=== PATIENT | male | born 1945 | race Caucasian/White ===

== ENCOUNTER 2022-10-08 10:32 | Emergency (ER) | payer OTHER ==
--- OUTSIDE RECORDS SUMMARY | 2022-10-08 10:38 | XMS REPORT | Continuity of Care Document ---
:1945 Author Organization [facility] t Address [address] [facility]. [address] [place] [address] Care Team Providers Name Role Phone Reyna Primary Care Physician Elda Attending Clinician Unavailable PINKY Attending Clinician Unavailable JEB PASCUAL Attending Clinician Unavailable Elda Admitting Clinician Unavailable PINKY Admitting Clinician Unavailable JEB PASCUAL Admitting Clinician Unavailable Payers Payer Name Policy Type Policy Number Effective Date Expiration Date [facility] [id number] 2021 COMMUNITY PLAN-[place] 00:00:00 (MEDICARE REPLACEMENT/ADVANTA GE - PPO) [facility] - [id number] MEDICARE SOLUTIONS - MEDICARE COMPLETE (MEDICARE REPLACEMENT PPO) Problems Condition Condition Condition Status Onset Resolution Last Treating Co mments Source Name Details Category Date Date Treatment Clinician Date Hypertensi Hypertensi Problem Active 2019-06 M [place] ve ve 2-29 da disorder Disorder 00:00: [facility] 00 [facility] Pancytopen Pancytopen Disease [facility]ur[facility] due to nce 2-13 [facility] chemothera chemothera 00:00: Me dical py py 00 Center Colitis Colitis Disease Active [facility]13 [facility] Clostridiu Clostridiu 00:00: Me dical m m 00 Center difficile difficile Hyponatrem Hyponatrem Disease Active [facility] 2[facility]13 [facility] Medical 00 Center Hypokalemi Hypokalemi Disease Active 2017-[address] [facility] a 2-13 [facility] 00:[facility] Medical 00 Center Fever and Fever and Disease Recurre [facility] neutropeni neutropeni nce 2-10 Janine kes a a 00:00: Medical 00 Center Simple Simple Disease Recurre [facility] chronic chronic nce 07-05 [facility] bronchitis bronchitis 00:00: Me dical 00 Center 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 07-05 [facility] 00:[facility]: Medical 00 Center 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 07-05 [facility] marrow marrow 00:00: Medical failure failure 00 Center Allergies, Adverse Reactions, Alerts Allergy Allergy Status Severity Reaction(s) Onset Inactive Treating Comm ents Source Name Type Date Date Clinician Penicill Propensi Active Rash Has [facility] ins ty to 07-05 tolerated [facility] adverse 00:00: cefepime Medical reaction 00 and Center s meropenem without any allergic reaction during 2016 admission PENICILL Allergy Active [place] ANIC to da SULFONE [facility] BL e al BETA-LAC Health TAMASE Outreac INHIBITO h RS Program SULFA Allergy Active Rash, [place] (SULFONA to Wheezing da MIDE [facility] Medical ANTIBIOT e Group ICS) Family History Family Member Diagnosis Comments Start Date Stop Date Source Natural mother Stroke [facility] Social History Social Habit Start Date Stop Date Quantity Comments Source History of Current smoker [facility] tobacco use Medical Cent[facility] r Alcohol intake 2016-07-05 2016-07-05 Current drinker [facility] Catherine fragoso [facility] 00:00:00 00:00:00 of [facility] (finding) Sex Ass[birth year] At [birth year] [facility] 00:00:00 00:00:00 Medical Center Smoking Status Start Date Stop Date Source Light Tobacco Smoker [facility] Heavy Tobacco Smoker [facility] Ex-smoker 2016-07-05 00:00:00 2016-07-05 00:00:00 [facility] Medications Ordered Filled Start Stop Current Ordering Indication Dosage Frequency Signature Comments Components Source Medication Medication Date Date Medication? Clinician (SIG) Name Name finasteride Yes 5mg QD Take [address] (PROSCAR) 5 2-27 by mouth Luke s mg tablet 14:49: daily. Medica l 40 [place] tamsulosin 2017-0 Yes .4mg QD Take 0.[address] [facility] (FLOMAX) 2-27 mg by [facility] 0.4 mg Cp24 14:49: mouth Medic al 24 hr 40 daily. Center capsule tamsulosin tamsulosin No 1capsul Q1D tamsulosin [place] 0.4 mg 0.4 mg e(s) 0.4 mg da capsule capsule capsule Medica l Take 1 Take 1 Take 1 Group capsule capsule capsule every day every day every day by oral by oral by oral route. route. route. Adult Low Adult Low No Adult Low [place] Dose Dose Dose da Aspirin Aspirin Aspirin [facility] Outre h Program atorvastati atorvastati No atorvastat [place] n n in da [facility] Program azithromyci azithromyci No 1 Q1D azithromyc [place] n 500 mg n 500 mg in 500 mg da tablet Take tablet Take tablet [facility] 1 tablet 1 tablet Take 1 al every day every day tablet Hea lth by oral by oral every day Outr eac route for 3 route for 3 by oral h days. days. route for Program 3 days. finasteride finasteride No finasterid [place] [facility] da [facility] Program ivermectin ivermectin No ivermectin [place] 3 mg tablet 3 mg tablet 3 mg d a Take 5 Take 5 tablet [facility] tablets by tablets by Take 5 a l mouth today mouth today tablets by [facility] and repeat and repeat mouth Ou treac in 2 days. in 2 days. today and h repeat in Program 2 days. lisinopril lisinopril No lisinopril [place] [facility] Medrol Medrol No Medrol [place] (Yahir) 4 mg (Yahir) 4 mg (Yahir) 4 mg da tablets in tablets in tablets in [facility] a dose pack a dose pack a dose al Take as Take as pack Take Heal th directed directed as Outreac directed h Program metformin metformin No metformin [place] [facility] tamsulosin tamsulosin No tamsulosin [place] [facility] Vital Signs Vital Name Observation Time Observation Value Comments Source BP Diastolic 2022-02-14 00:00:00 76 mm[Hg] [facility] Height 2022-02-14 00:00:00 69 [in_i] [facility] BMI (Body Mass 2022-02-14 00:00:00 27.7 kg/m2 [facility] BP Systolic 2022-02-14 00:00:00 123 mm[Hg] [facility] Body Weight 2022-02-14 00:00:00 187.3 [lb_av] [facility] BP Diastolic 2020-06-07 00:00:00 70 mm[Hg] [place] [facility] Height 2020-06-07 00:00:00 70 [in_i] [place] [facility] BMI (Body Mass 2020-06-07 00:00:00 26.1 kg/m2 [facility] BP Systolic 2020-06-07 00:00:00 110 mm[Hg] [place] [facility] Body Weight 2020-06-07 00:00:00 2905.6 [oz_av] [facility] Procedures Procedure Date / Time Performed Performing Clinician Sourc e Tonsillectomy [facility]end[facility] Plan of Care Planned Activity Planned Date Details Comments Source Diagnostic Test 2020-06-07 COVID-19 RNA [place] Pending 00:00:00 (SARS-CoV-2), QL, [facility] oem sales manager-PCR, respiratory Outreac h Program specimen [code = COVID-19 RNA (SARS-CoV-2), QL, oem sales manager-PCR, respiratory specimen] Encounters Start End Encounter Admission Attending Care Care Encounter Source Date/Time Date/Time Type Type Clinicians Facility Department ID 2022-02-14 2022-02-14 [place] [id number] [place] 00:00:00 00:00:00 0907 da [facility] 2022-02-14 2022-02-14 YOSSI Weinstein [place] - [id number] [place] 00:00:00 00:00:00 MD: Celeste Patel [facility] [address], [place], [place] [id number] , Ph. 2022-01-11 2022-01-11 Outpatient [place]_Tashi [place]G [id number] [place] 00:00:00 00:00:00 0804 Medical Group 2020-06-09 2020-06-09 Outpatient [facility] [id number] [place] 04:25:00 04:25:00 [id number] [facility] Health Outreac h Program 2020-06-07 2020-06-07 Outpatient [facility] [id number] [place] 06:37:00 06:37:00 [id number] [facility] Health Outreac h Program 2020-06-07 2020-06-07 Nikki [facility] [place] - [id number] at[place]or 00:00:00 00:00:00 Veronica [facility] Mo, [facility] op SOURCING MANAGER: [address] [facility] [address] [facility] , Ph. Results Test Description Test Time Test Comments Results Result Comments Source BLOOD CULTURE, AFB ISOLATOR 2016-09-12 11:08:00 Test Item Value Reference Range Interpretation Comme nts CULTURE (AKER) (test code = 1095) No acid-fast bacilli isolated i n 42 days BONE MARROW [id number] 12:57:00Bone Marrow Pathology Report Case: [id number] Authorizing Provider: Minor Hernandez MD Ordering Provider: Minor Hernandez MD Ordering Location: [address] Collected: 08/06/2016 1140 SERVICE Pathologist: Malorie Jaime MD Received: 08/06/2016 1209 Specimens: A) - Bone B) - C) - [facility] [employer] Result;Classical cytogenetic studies show a normal karyotype. FISH studies for inv 16 reportedly show 199 cells negative for gene rearrangement, and one abnormal cell; although this result is below the threshold of detection for this assay, it would be difficult to exclude a very low level of disease (see attached report for full details). These results do not alter the previously rendered diagnosis. BONE MARROW ASPIRATE, CLOT, AND DECALCIFIED BIOPSY:- HYPERCELLULAR MARROW WITH TRILINEAGE HEMATOPOIESIS, 1% BLASTS AND ADEQUATE MATURATION (see comment)-PENDING CYTOGENETIC STUDIESPERIPHERAL BLOOD:NORMOCYTIC ANEMIA, ABSOLUTE NEUTROPENIA AND LYMPHOPENIA Signing Pathologist Direct Phone Line: [phone] than 5% (1%) blasts are noted on aspirate smears, as confirmed by flow cytometry ([id number]). These results do not provide morphologic or immunophenotypic evidence of residual acute myeloid leukemia. Cytogenetic studies are pending, including FISH for CBFB rearrangement (inv 16), and will be reported separately by [facility] [employer]. An addendum incorporating these results will follow.06052; 34439; 45850 x 2; 40803; 66679GWF, s/p therapyBone marrowAll parts are labeled with the patients' information.Specimen A received several aspirate smears including one unstained slide for Pema's iron stain.Specimen B in formalin is a 1.0-cm in greatest dimension portion of clotted blood. The specimen is entirely submitted in cassette B1. Specimen C in formalin are two azevedo-white cores of osseous tissue measuring 0.3 cm and 0.7 cm in length. The specimen is entirely submitted in cassette C1 for decalcification. DB/bcBONE MARROW ASPIRATE:QUALITY:Aspirate- AdequateTouch imprint- AdequateMARROW DIFFERENTIAL COUNT: Number of cells counted: 3001 % Blasts 3 % Promyelocytes 29 % Myelocytes/Metamyelocytes 28 % Bands/Segmented granulocytes 1 % Eosinophils and precursors 0 % Basophils and precursors 32 % Erythroid precursors 3 % Lymphocytes 2 % Monocytes1 % Plasma cellsMyeloid: Erythroid Ratio: 2; NormalBlasts: Not IncreasedErythropoiesis: Normal and complete maturation Myelopoiesis: Left shifted with complete maturation Megakaryocytes: Present and appear normalStainable iron is focally present based on an iron stain performed on the aspirate smear. There are no ring sideroblasts identified. BONE MARROW BIOPSY:Biopsy- AdequateClot- InadequateHypercellular (80%). Cellular composition similar to aspirate smears and touch imprints. Normal proportions of myeloid and erythroid precursors present with complete maturation. Megakaryocytes are adequate and include a few hyperchromatic and/or hypersegmented forms. Bony trabeculae: unremarkableStainable storage iron cannot be assessed due to the lack of adequate particles on an iron stain performed on the clot section. PERIPHERAL BLOOD:RBCs:Normochromic, mild anisopoikilocytosis WBCs:Mild toxic granulation Platelets: Normal numberFLOW CYTOMETRY [id number] 09:04:00 Test Item Value Reference Range Interpretation Comments FLOW CYTOMETRY RESULT See Separate Report POINTER (KEYANNA) (test code = 2758) FLOW CYTOMETRY AP CASE # [id number] (BEAKER) (test code = 2759) FLOW [id number] 16:28:00 Test Item Value Reference Range Interpretation Comments LAB AP CPT CODE (BEAKER) (test code = 67194 2749) BONE MARROW PROCESS.2016-08-06 12:21:00 Test Item Value Reference Range Interpretation Comments ANATOMIC CASE# (BEAKER) (test code [id number] = 2470) ORDERED BY DOCTOR# (KEYANNA) (test [place], S code = 2457) PERFORMED BY DOCTOR# (KEYANNA) (test [place] code = 2458) CLOT RECEIVED? (BEAKER) (test code Yes = 2459) BIOPSY RECEIVED? (BEAKER) (test Yes code = 2460) CULTURE RECEIVED? (BEAKER) (test No code = 2464) FLOW RECEIVED? (BEAKER) (test code Hold = 2461) CYTOGENICS? (BEAKER) (test code = Hold 2462) MOLECULAR GENETICS? (BEAKER) (test Hold code = 2463) BONE MARROW [id number] 10:57:00Bone Marrow Pathology Report Case: [id number] Authorizing Provider: Minor Hernandez MD Ordering Provider:Minor Hernandez MD Ordering Location: [address] Collected: 07/26/2016 1150 SERVICE Pathologist: Gracia Messer Received: 07/26/2016 7274 MD Alber Specimens: A) - Bone Marrow B) - Bone Marrow C) - Bone Marrow This addendum is being issued to report results of cytogenetic studies performed by [facility] [employer]:46,XY[10]Limited analysis. Only ten cells were available for cytogenetic analysis from one culture. These ten cells have a normal male complement with no cytogenetic evidence of the abnormal cell lines identified in the previous sample. This does not rule out the presen ce of clonal abnormalities. BONE MARROW ASPIRATE, CLOT, AND DECALCIFIED BIOPSY: - HYPOCELLULAR MARROW WITH APPROXIMATELY 1% BLASTS AND INCREASED LYMPHOCYTES, MONOCYTES AND PLASMA CELLS, CONSISTENT WITHREPORTED HISTORY OF INDUCTION CHEMOTHERAPY PERIPHERAL BLOOD: - PANCYTOPENIA- NO CIRCULATING BLASTS Signing Pathologist Direct Phone Line: [phone] correlate with pending cytogenetic studies for final interpretation.27435; 04957; 46463 x 2; 02653; 01199; 38266; 19241 x 9AML, s/p chemo. Day 14marrow.A. One unstained slide for Pema's iron stain; B. Bone marrow aspirate, C. Bone marrow biopsySpecimen A: Received in one unstained slide for Pema's iron stain. Specimen B: Received in formalin labeled with the patient's information only is a 1.5 x 0.6 x 0.5 cm portion of clotted blood. The specimen is entirely submitted in cassette B1.Specimen C: In formalin labeled with the patient's information only is a 0.6 cm in length azevedo-white core of osseous tissue. The specimen is entirely submitted in cassette C1 for decalcification. DB/plBONE MARROW ASPIRATE:QUALITY:Aspirate- AdequateTouch imprint-AdequateMARROW DIFFERENTIAL COUNT: Number of cells counted: 100- % Blasts - % Promyelocytes - % Myelo cytes/Metamyelocytes - % Bands/Segmented granulocytes - % Eosinophils and precursors - % Basophils and precursors - % Erythroid precursors 84 % Lymphocytes 5 % [id number] % Plasma cellsBlasts: Not IncreasedIron stain (performed on aspirate smear) is difficult to interpret, but iron appears to be present. RBC iron incorporation is precluded by absence of erythroids. BONE MARROW BIOPSY:Biopsy- AdequateClot- Limited-- one small spicule is present Hypocellular (5%)Cellular composition similar to aspirate smears and touch imprints. The biopsy consists predominately of lymphocytes, plasma cells and monocytes; two megakaryocytes are identified. Immunohistochemical studies are performed with appropriate controls. CD34 highlights approximately 1% blasts. MPO highlights a few mononuclear cells; a few of these cells appear to also be positive for CD34. CD61 highlights two megakaryocytes. E-cadherin does not demonstrate erythroids. CD3 and CD20 highlight small scattered T- and B- lymphocytes, respectively (more T cells are present than B-cells). CD4 shows increased background staining, but appears to be positive in lymphocytes and monocytes. CD138 highlights scattered and perisinusoidal plasma cells which are polytypic for kappa and lambda. Bony trabeculae: UnremarkableIron stain performed on clot section is non-contributory-- the single spicule which is present on the H&E stain is not present on the iron stained slide. PERIPHERAL BLOOD:RBCs:Severe anemia; normochromic WBCs:Severe leukopenia; no ci rculating blasts Platelets: Sever thrombocytopenia; no clumping or satellitosisThe following special studies were performed on this case and the interpretation is incorporated in the diagnostic reportabove: CD34, MPO, CD4, CD138, Wanda, Lambda, CD3, CD20, CD61, E-Cadherin (block C1).The immunohistoch emistry test was developed and its performance characteristics determined by [facility], Pathology Laboratory. It has not been cleared or approved by the U.S. Food and Drug Administration. The FDA has determined that such clearance or approval is not necessary. The test is used for clinical purposes. It should not be regarded as investigational or for research. This laboratory is certified under the Clinical Laboratory Improvement Amendments of 1988 (CLIA-88) as qualified to perform high complexity clinical laboratory testing.CBC W/PLT COUNT & AUTO [id number] 10:26:00 Test Item Value Reference Range Interpretation Comments WHITE BLOOD CELL COUNT (BEAKER) 2.7 K/ L 4.0-10.0 L (test code = 775) RED BLOOD CELL COUNT (BEAKER) 2.60 M/ L 4.20-5.80 L (test code = 761) HEMOGLOBIN (BEAKER) (test code = 8.6 GM/DL 13.0-16.8 L 410) HEMATOCRIT (BEAKER) (test code = 24.6 % 40.0-50.0 L 411) MEAN CORPUSCULAR VOLUME (BEAKER) 94.7 fL 82.0-98.0 (test code = 753) MEAN CORPUSCULAR HEMOGLOBIN 33.1 pg 27.0-33.0 H (BEAKER) (test code = 751) MEAN CORPUSCULAR HEMOGLOBIN CONC 34.9 GM/DL 32.0-36.0 (BEAKER) (test code = 752) RED CELL DISTRIBUTION WIDTH 16.2 % 10.3-14.2 H (BEAKER) (test code = 412) PLATELET COUNT (BEAKER) (test 256 K/CU MM 150-430 code = 756) MEAN PLATELET VOLUME (BEAKER) 7.8 fL 6.5-10.5 (test code = 754) NUCLEATED RED BLOOD CELLS 0 /100 WBC 0-0 (BEAKER) (test code = 413) 0.00(MANUAL DIFFERENTIAL)2016-08-06 10:26:00 Test Item Value Reference Range Interpretation Comments NEUTROPHILS - REL (DIFF) (BEAKER) 49 % (test code = 1359) LYMPHOCYTES - REL (DIFF) (BEAKER) 23 % (test code = 1360) MONOCYTES - REL (DIFF) (BEAKER) 26 % (test code = 1361) BANDS - REL (DIFF) (BEAKER) (test 2 % 0-10 code = 1348) NEUTROPHILS - ABS (DIFF) (BEAKER) 1.32 K/ L 1.80-8.00 L (test code = 1365) LYMPHOCYTES - ABS (DIFF) (BEAKER) 0.62 K/ L 1.48-4.50 L (test code = 1366) MONOCYTES - ABS (DIFF) (BEAKER) 0.70 K/ L 0.00-1.30 (test code = 1367) BANDS-ABS (DIFF) (BEAKER) (test 0.1 K/ L 0.0-0.8 code = 1349) TOTAL COUNTED (BEAKER) (test code = 100 1351) BANDS + SEGMENTED NEUTROPHILS 1.38 (BEAKER) (test code = 1352) WBC MORPHOLOGY (BEAKER) (test code Normal = 487) PLT MORPHOLOGY (BEAKER) (test code Normal = 486) POIKILOCYTES (BEAKER) (test code = 1+ few 966) TEAR DROP CELLS (BEAKER) (test code 1+ few = 481) CBC W/PLT COUNT & AUTO [id number] 10:43:00 Test Item Value Reference Range Interpretation Comments WHITE BLOOD CELL COUNT (BEAKER) 2.0 K/ L 4.0-10.0 L (test code = 775) RED BLOOD CELL COUNT (BEAKER) 2.49 M/ L 4.20-5.80 L (test code = 761) HEMOGLOBIN (BEAKER) (test code = 8.5 GM/DL 13.0-16.8 L 410) HEMATOCRIT (BEAKER) (test code = 24.1 % 40.0-50.0 L 411) MEAN CORPUSCULAR VOLUME (BEAKER) 96.7 fL 82.0-98.0 (test code = 753) MEAN CORPUSCULAR HEMOGLOBIN 34.0 pg 27.0-33.0 H (BEAKER) (test code = 751) MEAN CORPUSCULAR HEMOGLOBIN CONC 35.1 GM/DL 32.0-36.0 (BEAKER) (test code = 752) RED CELL DISTRIBUTION WIDTH 15.5 % 10.3-14.2 H (BEAKER) (test code = 412) PLATELET COUNT (BEAKER) (test 182 K/CU MM 150-430 code = 756) MEAN PLATELET VOLUME (BEAKER) 7.8 fL 6.5-10.5 (test code = 754) NUCLEATED RED BLOOD CELLS 0 /100 WBC 0-0 (BEAKER) (test code = 413) 0.000.500.000.000.000.000.00(MANUAL DIFFERENTIAL)2016-08-05 10:43:00 Test Item Value Reference Range Interpretation Comments NEUTROPHILS - REL (DIFF) (BEAKER) 52 % (test code = 1359) LYMPHOCYTES - REL (DIFF) (BEAKER) 23 % (test code = 1360) MONOCYTES - REL (DIFF) (BEAKER) 13 % (test code = 1361) METAMYELOCYTES-REL (DIFF) (BEAKER) 5 % 0-0 H (test code = 258) BANDS - REL (DIFF) (BEAKER) (test 6 % 0-10 code = 1348) ATYPICAL LYMPHOCYTE - REL (DIFF) 1 % 0-0 H (BEAKER) (test code = 260) NEUTROPHILS - ABS (DIFF) (BEAKER) 1.04 K/ L 1.80-8.00 L (test code = 1365) LYMPHOCYTES - ABS (DIFF) (BEAKER) 0.46 K/ L 1.48-4.50 L (test code = 1366) MONOCYTES - ABS (DIFF) (BEAKER) 0.26 K/ L 0.00-1.30 (test code = 1367) METAMYELOCTYES - ABS (DIFF) 0.10 K/ L 0.00-0.00 H (BEAKER) (test code = 261) BANDS-ABS (DIFF) (BEAKER) (test 0.1 K/ L 0.0-0.8 code = 1349) ATYPICAL LYMPHOCYTES - ABS (DIFF) 0.02 K/ L 0.00-0.00 H (BEAKER) (test code = 263) TOTAL COUNTED (BEAKER) (test code 100 = 1351) BANDS + SEGMENTED NEUTROPHILS 1.16 (BEAKER) (test code = 1352) MANUAL NRBC PER 100 CELLS (BEAKER) 2 /100 WBC 0-0 H (test code = 1353) WBC MORPHOLOGY (BEAKER) (test code Normal = 487) PLT MORPHOLOGY (BEAKER) (test code Normal = 486) ELLIPTOCYTES (BEAKER) (test code = 1+ few 962) [id number] 06:06:00 Test Item Value Reference Range Interpretation Comments PHOSPHORUS (BEAKER) (test code = 2.4 mg/dL 2.3-4.7 604) [id number] 06:06:00 Test Item Value Reference Range Interpretation Comments MAGNESIUM (BEAKER) (test code = 1.6 mg/dL 1.6-2.6 627) BASIC METABOLIC [id number] 06:06:00 Test Item Value Reference Range Interpretation Comments SODIUM (BEAKER) 133 meq/L 136-145 L (test code = 381) POTASSIUM (BEAKER) 3.5 meq/L 3.5-5.1 (test code = 379) CHLORIDE (BEAKER) 108 meq/L 98-107 H (test code = 382) CO2 (BEAKER) (test 19 meq/L 22-29 L code = 355) BLOOD UREA NITROGEN 7 mg/dL 7-21 (BEAKER) (test code = 354) CREATININE (BEAKER) 0.60 mg/dL 0.57-1.25 (test code = 358) GLUCOSE RANDOM 113 mg/dL 70-105 H (BEAKER) (test code = 652) CALCIUM (BEAKER) 6.9 mg/dL 8.4-10.2 L (test code = 697) EGFR (BEAKER) (test 133 mL/min/1.73 ESTIM ATED GFR IS code = 1092) sq m NOT ACCURATE CREATININE CLEARANCE IN PREDICTING GLOMERULAR FILTRATION RATE . ESTIMATED GFR I S NOT APPLICABLE FOR DIALYSIS PATIEN TS. CBC W/PLT COUNT & AUTO [id number] 13:12:00 Test Item Value Reference Range Interpretation Comments WHITE BLOOD CELL COUNT (BEAKER) 1.5 K/ L 4.0-10.0 L (test code = 775) RED BLOOD CELL COUNT (BEAKER) 2.41 M/ L 4.20-5.80 L (test code = 761) HEMOGLOBIN (BEAKER) (test code = 8.1 GM/DL 13.0-16.8 L 410) HEMATOCRIT (BEAKER) (test code = 22.9 % 40.0-50.0 L 411) MEAN CORPUSCULAR VOLUME (BEAKER) 94.9 fL 82.0-98.0 (test code = 753) MEAN CORPUSCULAR HEMOGLOBIN 33.6 pg 27.0-33.0 H (BEAKER) (test code = 751) MEAN CORPUSCULAR HEMOGLOBIN CONC 35.4 GM/DL 32.0-36.0 (BEAKER) (test code = 752) RED CELL DISTRIBUTION WIDTH 16.0 % 10.3-14.2 H (BEAKER) (test code = 412) PLATELET COUNT (BEAKER) (test 106 K/CU MM 150-430 L code = 756) MEAN PLATELET VOLUME (BEAKER) 8.1 fL 6.5-10.5 (test code = 754) NUCLEATED RED BLOOD CELLS 0 /100 WBC 0-0 (BEAKER) (test code = 413) NEUTROPHILS RELATIVE PERCENT 41 % (BEAKER) (test code = 429) LYMPHOCYTES RELATIVE PERCENT 34 % (BEAKER) (test code = 430) MONOCYTES RELATIVE PERCENT 23 % (BEAKER) (test code = 431) EOSINOPHILS RELATIVE PERCENT 2 % (BEAKER) (test code = 432) BASOPHILS RELATIVE PERCENT 0 % (BEAKER) (test code = 437) NEUTROPHILS ABSOLUTE COUNT 0.60 K/ L 1.80-8.00 L (BEAKER) (test code = 670) LYMPHOCYTES ABSOLUTE COUNT 0.50 K/ L 1.48-4.50 L (BEAKER) (test code = 414) MONOCYTES ABSOLUTE COUNT (BEAKER) 0.34 K/ L 0.00-1.30 (test code = 415) EOSINOPHILS ABSOLUTE COUNT 0.04 K/ L 0.00-0.50 (BEAKER) (test code = 416) BASOPHILS ABSOLUTE COUNT (BEAKER) 0.00 K/ L 0.00-0.20 (test code = 417) 0.000.730.500.000.000.000.000.00(MANUAL DIFFERENTIAL)2016-08-04 13:12:00 Test Item Value Reference Range Interpretation Comments TOTAL COUNTED (BEAKER) (test code = 1351) WBC MORPHOLOGY (BEAKER) (test Normal code = 487) LARGE PLT(BEAKER) (test code = Present 2156) ACANTHOCYTES (BEAKER) (test code 2+ moderate = 471) ANISOCYTOSIS (BEAKER) (test code 2+ moderate = 961) GHAZALA CELLS (BEAKER) (test code = 1+ few 474) HYPOCHROMIA (BEAKER) (test code = 2+ moderate 963) MACROCYTES (BEAKER) (test code = 2+ moderate 964) MICROCYTES (BEAKER) (test code = 1+ few 965) OVALOCYTES (BEAKER) (test code = 1+ few 477) POIKILOCYTES (BEAKER) (test code 2+ moderate = 966) POLYCHROMATOPHILLIC RBCS(BEAKER) 1+ few (test code = 478) BASIC METABOLIC [id number] 06:17:00 Test Item Value Reference Range Interpretation Comments SODIUM (BEAKER) 134 meq/L 136-145 L (test code = 381) POTASSIUM (BEAKER) 3.6 meq/L 3.5-5.1 (test code = 379) CHLORIDE (BEAKER) 107 meq/L 98-107 (test code = 382) CO2 (BEAKER) (test 21 meq/L 22-29 L code = 355) BLOOD UREA NITROGEN 5 mg/dL 7-21 L (BEAKER) (test code = 354) CREATININE (BEAKER) 0.52 mg/dL 0.57-1.25 L (test code = 358) GLUCOSE RANDOM 99 mg/dL 70-105 (BEAKER) (test code = 652) CALCIUM (BEAKER) 6.8 mg/dL 8.4-10.2 L (test code = 697) EGFR (BEAKER) (test 157 mL/min/1.73 ESTIM ATED GFR IS code = 1092) sq m NOT ACCURATE CREATININE CLEARANCE IN PREDICTING GLOMERULAR FILTRATION RATE . ESTIMATED GFR I S NOT APPLICABLE FOR DIALYSIS PATIEN TS. [id number] 06:15:00 Test Item Value Reference Range Interpretation Comments PHOSPHORUS (BEAKER) (test code = 2.6 mg/dL 2.3-4.7 604) [id number] 06:15:00 Test Item Value Reference Range Interpretation Comments MAGNESIUM (BEAKER) (test code = 1.7 mg/dL 1.6-2.6 627) CBC W/PLT COUNT & AUTO [id number] 07:47:00 Test Item Value Reference Range Interpretation Comments WHITE BLOOD CELL COUNT (BEAKER) 1.1 K/ L 4.0-10.0 L (test code = 775) RED BLOOD CELL COUNT (BEAKER) 2.28 M/ L 4.20-5.80 L (test code = 761) HEMOGLOBIN (BEAKER) (test code = 7.3 GM/DL 13.0-16.8 L 410) HEMATOCRIT (BEAKER) (test code = 21.5 % 40.0-50.0 L 411) MEAN CORPUSCULAR VOLUME (BEAKER) 94.7 fL 82.0-98.0 (test code = 753) MEAN CORPUSCULAR HEMOGLOBIN 32.0 pg 27.0-33.0 (BEAKER) (test code = 751) MEAN CORPUSCULAR HEMOGLOBIN CONC 33.8 GM/DL 32.0-36.0 (BEAKER) (test code = 752) RED CELL DISTRIBUTION WIDTH 15.2 % 10.3-14.2 H (BEAKER) (test code = 412) PLATELET COUNT (BEAKER) (test code 59 K/CU MM 150-430 L = 756) MEAN PLATELET VOLUME (BEAKER) 8.5 fL 6.5-10.5 (test code = 754) NUCLEATED RED BLOOD CELLS (BEAKER) 0 /100 WBC 0-0 (test code = 413) NEUTROPHILS RELATIVE PERCENT 41 % (BEAKER) (test code = 429) LYMPHOCYTES RELATIVE PERCENT 38 % (BEAKER) (test code = 430) MONOCYTES RELATIVE PERCENT 21 % (BEAKER) (test code = 431) EOSINOPHILS RELATIVE PERCENT 0 % (BEAKER) (test code = 432) BASOPHILS RELATIVE PERCENT 0 % (BEAKER) (test code = 437) NEUTROPHILS ABSOLUTE COUNT 0.46 K/ L 1.80-8.00 L (BEAKER) (test code = 670) LYMPHOCYTES ABSOLUTE COUNT 0.42 K/ L 1.48-4.50 L (BEAKER) (test code = 414) MONOCYTES ABSOLUTE COUNT (BEAKER) 0.24 K/ L 0.00-1.30 (test code = 415) EOSINOPHILS ABSOLUTE COUNT 0.00 K/ L 0.00-0.50 (BEAKER) (test code = 416) BASOPHILS ABSOLUTE COUNT (BEAKER) 0.00 K/ L 0.00-0.20 (test code = 417) [id number](MANUAL DIFFERENTIAL)2016-08-03 07:47:00 Test Item Value Reference Range Interpretation Comments TOTAL COUNTED (BEAKER) (test code = 1351) PLT MORPHOLOGY (BEAKER) (test code = Normal 486) ATYPICAL LYMPHS(BEAKER) (test code = Present 1678) TOXIC GRANULATION (BEAKER) (test code Slight = 771) POLYCHROMATOPHILLIC RBCS(BEAKER) 1+ few (test code = 478) BASIC METABOLIC [id number] 06:35:00 Test Item Value Reference Range Interpretation Comments SODIUM (BEAKER) 133 meq/L 136-145 L (test code = 381) POTASSIUM (BEAKER) 3.7 meq/L 3.5-5.1 (test code = 379) CHLORIDE (BEAKER) 108 meq/L 98-107 H (test code = 382) CO2 (BEAKER) (test 21 meq/L 22-29 L code = 355) BLOOD UREA NITROGEN 5 mg/dL 7-21 L (BEAKER) (test code = 354) CREATININE (BEAKER) 0.54 mg/dL 0.57-1.25 L (test code = 358) GLUCOSE RANDOM 96 mg/dL 70-105 (BEAKER) (test code = 652) CALCIUM (BEAKER) 6.7 mg/dL 8.4-10.2 L (test code = 697) EGFR (BEAKER) (test 150 mL/min/1.73 ESTIM ATED GFR IS code = 1092) sq m NOT ACCURATE CREATININE CLEARANCE IN PREDICTING GLOMERULAR FILTRATION RATE . ESTIMATED GFR I S NOT APPLICABLE FOR DIALYSIS PATIEN TS. [id number] 06:26:00 Test Item Value Reference Range Interpretation Comments PHOSPHORUS (BEAKER) (test code = 1.6 mg/dL 2.3-4.7 L 604) [id number] 06:26:00 Test Item Value Reference Range Interpretation Comments MAGNESIUM (BEAKER) (test code = 1.5 mg/dL 1.6-2.6 L 627) BLOOD [id number] 05:00:00 Test Item Value Reference Range Interpretation Comments CULTURE (BEAKER) (test No growth in 5 days code = 1095) CYTOMEGALOVIRUS ANTIBODY, [id number] 17:40:00 Test Item Value Reference Range Interpretation Comments CYTOMEGALOVIRUS IGG ANTIBODY Positive (BEAKER) (test code = 790) CYTOMEGALOVIRUS ANTIBODY, [id number] 17:40:00 Test Item Value Reference Range Interpretation Comments CYTOMEGALOVIRUS IGM ANTIBODY Negative (BEAKER) (test code = 816) MISCELLANEOUS LAB [id number] 11:06:00 Test Item Value Reference Range Interpretation Comments SCAN RESULT (test code = 5560069) CBC W/PLT COUNT & AUTO [id number] 09:51:00 Test Item Value Reference Range Interpretation Comments WHITE BLOOD CELL COUNT (BEAKER) 0.6 K/ L 4.0-10.0 LL (test code = 775) RED BLOOD CELL COUNT (BEAKER) 2.33 M/ L 4.20-5.80 L (test code = 761) HEMOGLOBIN (BEAKER) (test code = 7.8 GM/DL 13.0-16.8 L 410) HEMATOCRIT (BEAKER) (test code = 22.2 % 40.0-50.0 L 411) MEAN CORPUSCULAR VOLUME (BEAKER) 95.2 fL 82.0-98.0 (test code = 753) MEAN CORPUSCULAR HEMOGLOBIN 33.6 pg 27.0-33.0 H (BEAKER) (test code = 751) MEAN CORPUSCULAR HEMOGLOBIN CONC 35.3 GM/DL 32.0-36.0 (BEAKER) (test code = 752) RED CELL DISTRIBUTION WIDTH 15.9 % 10.3-14.2 H (BEAKER) (test code = 412) PLATELET COUNT (BEAKER) (test code 30 K/CU MM 150-430 L = 756) MEAN PLATELET VOLUME (BEAKER) 9.9 fL 6.5-10.5 (test code = 754) NUCLEATED RED BLOOD CELLS (BEAKER) 0 /100 WBC 0-0 (test code = 413) [id number](MANUAL DIFFERENTIAL)2016-08-02 09:51:00 Test Item Value Reference Range Interpretation Comments NEUTROPHILS - REL (DIFF) (BEAKER) 13 % (test code = 1359) LYMPHOCYTES - REL (DIFF) (BEAKER) 55 % (test code = 1360) MONOCYTES - REL (DIFF) (BEAKER) 17 % (test code = 1361) BANDS - REL (DIFF) (BEAKER) (test 15 % 0-10 H code = 1348) NEUTROPHILS - ABS (DIFF) (BEAKER) 0.08 K/ L 1.80-8.00 L (test code = 1365) LYMPHOCYTES - ABS (DIFF) (BEAKER) 0.33 K/ L 1.48-4.50 L (test code = 1366) MONOCYTES - ABS (DIFF) (BEAKER) 0.10 K/ L 0.00-1.30 (test code = 1367) BANDS-ABS (DIFF) (BEAKER) (test 0.1 K/ L 0.0-0.8 code = 1349) TOTAL COUNTED (BEAKER) (test code = 100 1351) BANDS + SEGMENTED NEUTROPHILS 0.17 (BEAKER) (test code = 1352) PLT MORPHOLOGY (BEAKER) (test code Normal = 486) RBC MORPHOLOGY (BEAKER) (test code Normal = 762) ATYPICAL LYMPHS(BEAKER) (test code Present = 1678) BASIC METABOLIC [id number] 06:41:00 Test Item Value Reference Range Interpretation Comments SODIUM (BEAKER) 133 meq/L 136-145 L (test code = 381) POTASSIUM (BEAKER) 3.9 meq/L 3.5-5.1 (test code = 379) CHLORIDE (BEAKER) 108 meq/L 98-107 H (test code = 382) CO2 (BEAKER) (test 19 meq/L 22-29 L code = 355) BLOOD UREA NITROGEN 4 mg/dL 7-21 L (BEAKER) (test code = 354) CREATININE (BEAKER) 0.55 mg/dL 0.57-1.25 L (test code = 358) GLUCOSE RANDOM 94 mg/dL 70-105 (BEAKER) (test code = 652) CALCIUM (BEAKER) 6.5 mg/dL 8.4-10.2 L (test code = 697) EGFR (BEAKER) (test 147 mL/min/1.73 ESTIM ATED GFR IS code = 1092) sq m NOT ACCURATE CREATININE CLEARANCE IN PREDICTING GLOMERULAR FILTRATION RATE . ESTIMATED GFR I S NOT APPLICABLE FOR DIALYSIS PATIEN TS. BLOOD [id number] 17:00:00 Test Item Value Reference Range Interpretation Comments CULTURE (BEAKER) (test No growth in 5 days code = 1095) BLOOD [id number] 17:00:00 Test Item Value Reference Range Interpretation Comments CULTURE (BEAKER) (test No growth in 5 days code = 1095) CBC W/PLT COUNT & AUTO [id number] 11:10:00 Test Item Value Reference Range Interpretation Comments WHITE BLOOD CELL COUNT (BEAKER) 0.4 K/ L 4.0-10.0 LL (test code = 775) RED BLOOD CELL COUNT (BEAKER) 2.40 M/ L 4.20-5.80 L (test code = 761) HEMOGLOBIN (BEAKER) (test code = 7.6 GM/DL 13.0-16.8 L 410) HEMATOCRIT (BEAKER) (test code = 23.1 % 40.0-50.0 L 411) MEAN CORPUSCULAR VOLUME (BEAKER) 96.5 fL 82.0-98.0 (test code = 753) MEAN CORPUSCULAR HEMOGLOBIN 31.7 pg 27.0-33.0 (BEAKER) (test code = 751) MEAN CORPUSCULAR HEMOGLOBIN CONC 32.9 GM/DL 32.0-36.0 (BEAKER) (test code = 752) RED CELL DISTRIBUTION WIDTH 15.5 % 10.3-14.2 H (BEAKER) (test code = 412) PLATELET COUNT (BEAKER) (test code 20 K/CU MM 150-430 L = 756) MEAN PLATELET VOLUME (BEAKER) 8.9 fL 6.5-10.5 (test code = 754) NUCLEATED RED BLOOD CELLS (BEAKER) 0 /100 WBC 0-0 (test code = 413) 0.000.540.000.900.000.000.000.000.00(MANUAL DIFFERENTIAL)2016-08-01 11:10:00 Test Item Value Reference Range Interpretation Comments NEUTROPHILS - REL (DIFF) (BEAKER) 22 % (test code = 1359) LYMPHOCYTES - REL (DIFF) (BEAKER) 57 % (test code = 1360) MONOCYTES - REL (DIFF) (BEAKER) 17 % (test code = 1361) EOSINOPHILS - REL (DIFF) (BEAKER) 1 % (test code = 1362) PROMYELOCYTES-REL (DIFF) (BEAKER) 1 % 0-0 H (test code = 259) BANDS - REL (DIFF) (BEAKER) (test 1 % 0-10 code = 1348) BLASTS - REL (DIFF) (BEAKER) (test 1 % 0-0 H code = 1358) NEUTROPHILS - ABS (DIFF) (BEAKER) 0.09 K/ L 1.80-8.00 L (test code = 1365) LYMPHOCYTES - ABS (DIFF) (BEAKER) 0.23 K/ L 1.48-4.50 L (test code = 1366) MONOCYTES - ABS (DIFF) (BEAKER) 0.07 K/ L 0.00-1.30 (test code = 1367) EOSINOPHILS - ABS (DIFF) (BEAKER) 0.00 K/ L 0.00-0.50 (test code = 1368) PROMYELOCYTES - ABS (DIFF) (BEAKER) 0.00 K/ L 0.00-0.00 (test code = 262) BANDS-ABS (DIFF) (BEAKER) (test 0.0 K/ L 0.0-0.8 code = 1349) BLASTS - ABS (DIFF) (BEAKER) (test 0.00 K/ L 0.00-0.00 code = 1350) TOTAL COUNTED (BEAKER) (test code = 100 1351) BANDS + SEGMENTED NEUTROPHILS 0.09 (BEAKER) (test code = 1352) PLT MORPHOLOGY (BEAKER) (test code Normal = 486) RBC MORPHOLOGY (BEAKER) (test code Normal = 762) ATYPICAL LYMPHS(BEAKER) (test code Present = 1678) TOXIC GRANULATION (BEAKER) (test Present code = 771) BASIC METABOLIC [id number] 07:05:00 Test Item Value Reference Range Interpretation Comments SODIUM (BEAKER) 132 meq/L 136-145 L (test code = 381) POTASSIUM (BEAKER) 3.2 meq/L 3.5-5.1 L (test code = 379) CHLORIDE (BEAKER) 107 meq/L 98-107 (test code = 382) CO2 (BEAKER) (test 20 meq/L 22-29 L code = 355) BLOOD UREA NITROGEN 5 mg/dL 7-21 L (BEAKER) (test code = 354) CREATININE (BEAKER) 0.54 mg/dL 0.57-1.25 L (test code = 358) GLUCOSE RANDOM 88 mg/dL 70-105 (BEAKER) (test code = 652) CALCIUM (BEAKER) 6.0 mg/dL 8.4-10.2 LL (test code = 697) EGFR (BEAKER) (test 150 mL/min/1.73 ESTIM ATED GFR IS code = 1092) sq m NOT ACCURATE CREATININE CLEARANCE IN PREDICTING GLOMERULAR FILTRATION RATE . ESTIMATED GFR I S NOT APPLICABLE FOR DIALYSIS PATIEN TS. [id number] 06:53:00 Test Item Value Reference Range Interpretation Comments PHOSPHORUS (BEAKER) (test code = 1.6 mg/dL 2.3-4.7 L 604) [id number] 06:53:00 Test Item Value Reference Range Interpretation Comments MAGNESIUM (BEAKER) (test code = 1.6 mg/dL 1.6-2.6 627) CBC W/PLT COUNT & AUTO [id number] 06:44:00 Test Item Value Reference Range Interpretation Comments WHITE BLOOD CELL COUNT (BEAKER) 0.2 K/ L 4.0-10.0 LL (test code = 775) RED BLOOD CELL COUNT (BEAKER) 2.20 M/ L 4.20-5.80 L (test code = 761) HEMOGLOBIN (BEAKER) (test code = 7.9 GM/DL 13.0-16.8 L 410) HEMATOCRIT (BEAKER) (test code = 20.7 % 40.0-50.0 L 411) MEAN CORPUSCULAR VOLUME (BEAKER) 93.9 fL 82.0-98.0 (test code = 753) MEAN CORPUSCULAR HEMOGLOBIN 35.8 pg 27.0-33.0 H (BEAKER) (test code = 751) MEAN CORPUSCULAR HEMOGLOBIN CONC 38.1 GM/DL 32.0-36.0 H (BEAKER) (test code = 752) RED CELL DISTRIBUTION WIDTH 16.1 % 10.3-14.2 H (BEAKER) (test code = 412) PLATELET COUNT (BEAKER) (test code 18 K/CU MM 150-430 L = 756) MEAN PLATELET VOLUME (BEAKER) 8.2 fL 6.5-10.5 (test code = 754) NUCLEATED RED BLOOD CELLS (BEAKER) 0 /100 WBC 0-0 (test code = 413) NEUTROPHILS RELATIVE PERCENT 16 % (BEAKER) (test code = 429) LYMPHOCYTES RELATIVE PERCENT 57 % (BEAKER) (test code = 430) MONOCYTES RELATIVE PERCENT 21 % (BEAKER) (test code = 431) EOSINOPHILS RELATIVE PERCENT 5 % (BEAKER) (test code = 432) BASOPHILS RELATIVE PERCENT 0 % (BEAKER) (test code = 437) NEUTROPHILS ABSOLUTE COUNT 0.03 K/ L 1.80-8.00 L (BEAKER) (test code = 670) LYMPHOCYTES ABSOLUTE COUNT 0.09 K/ L 1.48-4.50 L (BEAKER) (test code = 414) MONOCYTES ABSOLUTE COUNT (BEAKER) 0.04 K/ L 0.00-1.30 (test code = 415) EOSINOPHILS ABSOLUTE COUNT 0.01 K/ L 0.00-0.50 (BEAKER) (test code = 416) BASOPHILS ABSOLUTE COUNT (BEAKER) 0.00 K/ L 0.00-0.20 (test code = 417) 0.000.670.900.000.000.000.000.00(MANUAL DIFFERENTIAL)2016-07-31 06:44:00 Test Item Value Reference Range Interpretation Comments TOTAL COUNTED (BEAKER) (test code = 1351) PLT MORPHOLOGY (BEAKER) (test code = Normal 486) RBC MORPHOLOGY (BEAKER) (test code = Normal 762) ATYPICAL LYMPHS(BEAKER) (test code = Present 1678) BASIC METABOLIC [id number] 03:11:00 Test Item Value Reference Range Interpretation Comments SODIUM (BEAKER) 132 meq/L 136-145 L (test code = 381) POTASSIUM (BEAKER) 3.9 meq/L 3.5-5.1 (test code = 379) CHLORIDE (BEAKER) 107 meq/L 98-107 (test code = 382) CO2 (BEAKER) (test 21 meq/L 22-29 L code = 355) BLOOD UREA NITROGEN 6 mg/dL 7-21 L (BEAKER) (test code = 354) CREATININE (BEAKER) 0.60 mg/dL 0.57-1.25 (test code = 358) GLUCOSE RANDOM 118 mg/dL 70-105 H (BEAKER) (test code = 652) CALCIUM (BEAKER) 6.4 mg/dL 8.4-10.2 L (test code = 697) EGFR (BEAKER) (test 133 mL/min/1.73 ESTIM ATED GFR IS code = 1092) sq m NOT ACCURATE CREATININE CLEARANCE IN PREDICTING GLOMERULAR FILTRATION RATE . ESTIMATED GFR I S NOT APPLICABLE FOR DIALYSIS PATIEN TS. [id number] 03:01:00 Test Item Value Reference Range Interpretation Comments PHOSPHORUS (BEAKER) (test code = 1.7 mg/dL 2.3-4.7 L 604) [id number] 03:01:00 Test Item Value Reference Range Interpretation Comments MAGNESIUM (BEAKER) (test code = 1.8 mg/dL 1.6-2.6 627) CREATINE KINASE (CK)2016-07-31 03:01:00 Test Item Value Reference Range Interpretation Comments CREATINE KINASE TOTAL (BEAKER) (test 50 U/L 29-200 code = 380) CMV PCR, [id number] 15:44:00 Test Item Value Reference Range Interpretation Comments CMV VIRAL LOAD - Negative or below the NEGATIVE (BEAKER) (test linear range of the code = 2558) assay (<375 copies/mL) Cytomegalovirus (CMV) infection can cause significant disease in immunosuppressed patients. However,it is common for CMV to manifest as a limited infection which is of no clinical significance in immunosuppressed patients or in healthy individuals.Viral load measurements are helpful to identify clinical CMV infection and to guide the pre-emptive management of antiviral therapy. For treatment of CMV infection due to reactivation in transplant recipients, a threshold between 4,000 and 5,000 copies/mLis suggested. For treatment of primary CMV infection, a lower threshold can be used.CMV infection may also be monitored using weekly serial measurements. Serial measurements of CMV DNA viral load can be evaluated by identifying a 10-fold change, as well as assessing the CMV DNA viral load and the clinical context for each patient.The plasma CMV DNA viral load was detected using quantitative polymerase chain reaction and fluorescent monitoring of a specific hybridized probe. Genetic variation and other factors can affect the accuracy of nucleic acid testing. Therefore, the results should be interpreted in light of clinical data. A negative result may not exclude the presence of CMV disease.This test was developed and its performance characteristics determined by the [facility] Department, Section of Molecular Pathology. It has not been cleared or approved by the U.S. Foodand Drug Administration (FDA), since FDA approval is not required for clinical use of the test. Validation was done as required by The Clinical Laboratory Improvement Amendments of 1988.CRYPTOCOCCAL ANTIGEN 2016-07-30 12:00:00 Test Item Value Reference Range Interpretation Comments CRYPTOCOCCAL ANTIGEN, SERUM Negative Negative, Interference (BEAKER) (test code = 1828) CBC W/PLT COUNT & AUTO [id number] 11:49:00 Test Item Value Reference Range Interpretation Comments WHITE BLOOD CELL COUNT (BEAKER) 0.2 K/ L 4.0-10.0 LL (test code = 775) RED BLOOD CELL COUNT (BEAKER) 2.24 M/ L 4.20-5.80 L (test code = 761) HEMOGLOBIN (BEAKER) (test code = 7.4 GM/DL 13.0-16.8 L 410) HEMATOCRIT (BEAKER) (test code = 21.4 % 40.0-50.0 L 411) MEAN CORPUSCULAR VOLUME (BEAKER) 95.2 fL 82.0-98.0 (test code = 753) MEAN CORPUSCULAR HEMOGLOBIN 33.1 pg 27.0-33.0 H (BEAKER) (test code = 751) MEAN CORPUSCULAR HEMOGLOBIN CONC 34.8 GM/DL 32.0-36.0 (BEAKER) (test code = 752) RED CELL DISTRIBUTION WIDTH 15.7 % 10.3-14.2 H (BEAKER) (test code = 412) PLATELET COUNT (BEAKER) (test code 11 K/CU MM 150-430 L = 756) MEAN PLATELET VOLUME (BEAKER) 11.5 fL 6.5-10.5 H (test code = 754) NUCLEATED RED BLOOD CELLS (BEAKER) 0 /100 WBC 0-0 (test code = 413) NEUTROPHILS RELATIVE PERCENT 10 % (BEAKER) (test code = 429) LYMPHOCYTES RELATIVE PERCENT 84 % (BEAKER) (test code = 430) MONOCYTES RELATIVE PERCENT 6 % (BEAKER) (test code = 431) EOSINOPHILS RELATIVE PERCENT 0 % (BEAKER) (test code = 432) BASOPHILS RELATIVE PERCENT 0 % (BEAKER) (test code = 437) NEUTROPHILS ABSOLUTE COUNT 0.02 K/ L 1.80-8.00 L (BEAKER) (test code = 670) LYMPHOCYTES ABSOLUTE COUNT 0.16 K/ L 1.48-4.50 L (BEAKER) (test code = 414) MONOCYTES ABSOLUTE COUNT (BEAKER) 0.01 K/ L 0.00-1.30 (test code = 415) EOSINOPHILS ABSOLUTE COUNT 0.00 K/ L 0.00-0.50 (BEAKER) (test code = 416) BASOPHILS ABSOLUTE COUNT (BEAKER) 0.00 K/ L 0.00-0.20 (test code = 417) 0.000.900.000.000.000.000.00(MANUAL DIFFERENTIAL)2016-07-30 11:49:00 Test Item Value Reference Range Interpretation Comments TOTAL COUNTED (BEAKER) (test code = 1351) PLT MORPHOLOGY (BEAKER) (test code = Normal 486) RBC MORPHOLOGY (BEAKER) (test code = Normal 762) ATYPICAL LYMPHS(BEAKER) (test code = Present 1708) [id number] 10:26:00 Test Item Value Reference Range Interpretation Comments PHOSPHORUS (BEAKER) (test code = 1.2 mg/dL 2.3-4.7 LL 604) BASIC METABOLIC [id number] 10:12:00 Test Item Value Reference Range Interpretation Comments SODIUM (BEAKER) 133 meq/L 136-145 L (test code = 381) POTASSIUM (BEAKER) 2.8 meq/L 3.5-5.1 L (test code = 379) CHLORIDE (BEAKER) 107 meq/L 98-107 (test code = 382) CO2 (BEAKER) (test 20 meq/L 22-29 L code = 355) BLOOD UREA NITROGEN 7 mg/dL 7-21 (BEAKER) (test code = 354) CREATININE (BEAKER) 0.56 mg/dL 0.57-1.25 L (test code = 358) GLUCOSE RANDOM 106 mg/dL 70-105 H (BEAKER) (test code = 652) CALCIUM (BEAKER) 6.2 mg/dL 8.4-10.2 L (test code = 697) EGFR (BEAKER) (test 144 mL/min/1.73 ESTIM ATED GFR IS code = 1092) sq m NOT ACCURATE CREATININE CLEARANCE IN PREDICTING GLOMERULAR FILTRATION RATE . ESTIMATED GFR I S NOT APPLICABLE FOR DIALYSIS PATIEN TS. [id number] 10:10:00 Test Item Value Reference Range Interpretation Comments MAGNESIUM (BEAKER) (test code = 1.2 mg/dL 1.6-2.6 L 627) [id number] 06:55:00 Test Item Value Reference Range Interpretation Comments PHOSPHORUS (BEAKER) (test code = 1.3 mg/dL 2.3-4.7 LL 604) COMPREHENSIVE METABOLIC [id number] 06:55:00 Test Item Value Reference Range Interpretation Comments TOTAL PROTEIN 4.2 gm/dL 6.0-8.3 L (BEAKER) (test code = 770) ALBUMIN (BEAKER) 2.1 g/dL 3.5-5.0 L (test code = 1145) ALKALINE PHOSPHATASE 62 U/L 40-150 (BEAKER) (test code = 346) BILIRUBIN TOTAL 0.7 mg/dL 0.2-1.2 (BEAKER) (test code = 377) SODIUM (BEAKER) (test 135 meq/L 136-145 L code = 381) POTASSIUM (BEAKER) 2.7 meq/L 3.5-5.1 L (test code = 379) CHLORIDE (BEAKER) 111 meq/L 98-107 H (test code = 382) CO2 (BEAKER) (test 19 meq/L 22-29 L code = 355) BLOOD UREA NITROGEN 7 mg/dL 7-21 (BEAKER) (test code = 354) CREATININE (BEAKER) 0.53 mg/dL 0.57-1.25 L (test code = 358) GLUCOSE RANDOM 94 mg/dL 70-105 (BEAKER) (test code = 652) CALCIUM (BEAKER) 5.9 mg/dL 8.4-10.2 LL (test code = 697) AST (SGOT) (BEAKER) 16 U/L 5-34 (test code = 353) ALT (SGPT) (BEAKER) 29 U/L 6-55 (test code = 347) EGFR (BEAKER) (test 154 ESTIMATE D GFR IS code = 1092) mL/min/1.73 sq NOT ACCURA TE m CREATININE CLEARANCE IN PREDICTING GLOMERULAR FILTRATION RATE . ESTIMATED GFR I S NOT APPLICABLE FOR DIALYSIS PATIEN TS. [id number] 06:38:00 Test Item Value Reference Range Interpretation Comments MAGNESIUM (BEAKER) (test code = 1.2 mg/dL 1.6-2.6 L 627) LACTIC ACID, VENOUS, WHOLE [id number] 06:00:00 Test Item Value Reference Range Interpretation Comments LACTATE BLOOD VENOUS (2) (BEAKER) 1.4 mmol/L 0.5-2.2 (test code = 2872) Effective 10/12/2015: Units/Reference Range ChangeNew: 0.5-2.2 mmol/L Previous: 5- 20 mg/dLHEPATIC FUNCTION [id number] 20:44:00 Test Item Value Reference Range Interpretation Comments TOTAL PROTEIN (BEAKER) (test code = 4.4 gm/dL 6.0-8.3 L 770) ALBUMIN (BEAKER) (test code = 1145) 2.3 g/dL 3.5-5.0 L BILIRUBIN TOTAL (BEAKER) (test code 0.8 mg/dL 0.2-1.2 = 377) BILIRUBIN DIRECT (BEAKER) (test 0.5 mg/dL 0.1-0.5 code = 706) ALKALINE PHOSPHATASE (BEAKER) (test 67 U/L 40-150 code = 346) AST (SGOT) (BEAKER) (test code = 16 U/L 5-34 353) ALT (SGPT) (BEAKER) (test code = 29 U/L 6-55 347) LACTIC ACID, VENOUS, WHOLE [id number] 15:38:00 Test Item Value Reference Range Interpretation Comments LACTATE BLOOD VENOUS (2) (BEAKER) 1.2 mmol/L 0.5-2.2 (test code = 2872) Effective 10/12/2015: Units/Reference Range ChangeNew: 0.5-2.2 mmol/L Previous: 5- 20 mg/dLLACTIC ACID, VENOUS, WHOLE [id number] 14:01:00 Test Item Value Reference Range Interpretation Comments LACTATE BLOOD VENOUS (2) (BEAKER) 1.0 mmol/L 0.5-2.2 (test code = 2872) Effective 10/12/2015: Units/Reference Range ChangeNew: 0.5-2.2 mmol/L Previous: 5- 20 mg/dLCBC W/PLT COUNT & AUTO [id number] 12:36:00 Test Item Value Reference Range Interpretation Comments WHITE BLOOD CELL COUNT (BEAKER) 0.1 K/ L 4.0-10.0 LL (test code = 775) RED BLOOD CELL COUNT (BEAKER) 2.49 M/ L 4.20-5.80 L (test code = 761) HEMOGLOBIN (BEAKER) (test code = 8.4 GM/DL 13.0-16.8 L 410) HEMATOCRIT (BEAKER) (test code = 22.9 % 40.0-50.0 L 411) MEAN CORPUSCULAR VOLUME (BEAKER) 92.2 fL 82.0-98.0 (test code = 753) MEAN CORPUSCULAR HEMOGLOBIN 33.6 pg 27.0-33.0 H (BEAKER) (test code = 751) MEAN CORPUSCULAR HEMOGLOBIN CONC 36.4 GM/DL 32.0-36.0 H (BEAKER) (test code = 752) RED CELL DISTRIBUTION WIDTH 15.8 % 10.3-14.2 H (BEAKER) (test code = 412) PLATELET COUNT (BEAKER) (test code 3 K/CU MM 150-430 LL = 756) MEAN PLATELET VOLUME (BEAKER) 11.2 fL 6.5-10.5 H (test code = 754) NUCLEATED RED BLOOD CELLS (BEAKER) 0 /100 WBC 0-0 (test code = 413) NEUTROPHILS RELATIVE PERCENT 5 % (BEAKER) (test code = 429) LYMPHOCYTES RELATIVE PERCENT 79 % (BEAKER) (test code = 430) MONOCYTES RELATIVE PERCENT 16 % (BEAKER) (test code = 431) EOSINOPHILS RELATIVE PERCENT 1 % (BEAKER) (test code = 432) BASOPHILS RELATIVE PERCENT 0 % (BEAKER) (test code = 437) NEUTROPHILS ABSOLUTE COUNT 0.01 K/ L 1.80-8.00 L (BEAKER) (test code = 670) LYMPHOCYTES ABSOLUTE COUNT 0.11 K/ L 1.48-4.50 L (BEAKER) (test code = 414) MONOCYTES ABSOLUTE COUNT (BEAKER) 0.02 K/ L 0.00-1.30 (test code = 415) EOSINOPHILS ABSOLUTE COUNT 0.00 K/ L 0.00-0.50 (BEAKER) (test code = 416) BASOPHILS ABSOLUTE COUNT (BEAKER) 0.00 K/ L 0.00-0.20 (test code = 417) [id number](MANUAL DIFFERENTIAL)2016-07-29 12:36:00 Test Item Value Reference Range Interpretation Comments TOTAL COUNTED (BEAKER) (test code = 1351) PLT MORPHOLOGY (BEAKER) (test code = Normal 486) RBC MORPHOLOGY (BEAKER) (test code = Normal 762) ATYPICAL LYMPHS(BEAKER) (test code = Present 1678) CBC W/PLT COUNT & AUTO [id number] 12:16:00 Test Item Value Reference Range Interpretation Comments WHITE BLOOD CELL COUNT (BEAKER) 0.3 K/ L 4.0-10.0 LL (test code = 775) RED BLOOD CELL COUNT (BEAKER) 2.58 M/ L 4.20-5.80 L (test code = 761) HEMOGLOBIN (BEAKER) (test code = 8.7 GM/DL 13.0-16.8 L 410) HEMATOCRIT (BEAKER) (test code = 23.9 % 40.0-50.0 L 411) MEAN CORPUSCULAR VOLUME (BEAKER) 92.5 fL 82.0-98.0 (test code = 753) MEAN CORPUSCULAR HEMOGLOBIN 33.7 pg 27.0-33.0 H (BEAKER) (test code = 751) MEAN CORPUSCULAR HEMOGLOBIN CONC 36.5 GM/DL 32.0-36.0 H (BEAKER) (test code = 752) RED CELL DISTRIBUTION WIDTH 15.7 % 10.3-14.2 H (BEAKER) (test code = 412) PLATELET COUNT (BEAKER) (test code 5 K/CU MM 150-430 LL = 756) MEAN PLATELET VOLUME (BEAKER) 13.2 fL 6.5-10.5 H (test code = 754) NUCLEATED RED BLOOD CELLS (BEAKER) 0 /100 WBC 0-0 (test code = 413) NEUTROPHILS RELATIVE PERCENT 6 % (BEAKER) (test code = 429) LYMPHOCYTES RELATIVE PERCENT 78 % (BEAKER) (test code = 430) MONOCYTES RELATIVE PERCENT 16 % (BEAKER) (test code = 431) EOSINOPHILS RELATIVE PERCENT 0 % (BEAKER) (test code = 432) BASOPHILS RELATIVE PERCENT 0 % (BEAKER) (test code = 437) NEUTROPHILS ABSOLUTE COUNT 0.02 K/ L 1.80-8.00 L (BEAKER) (test code = 670) LYMPHOCYTES ABSOLUTE COUNT 0.20 K/ L 1.48-4.50 L (BEAKER) (test code = 414) MONOCYTES ABSOLUTE COUNT (BEAKER) 0.04 K/ L 0.00-1.30 (test code = 415) EOSINOPHILS ABSOLUTE COUNT 0.00 K/ L 0.00-0.50 (BEAKER) (test code = 416) BASOPHILS ABSOLUTE COUNT (BEAKER) 0.00 K/ L 0.00-0.20 (test code = 417) 0.000.900.000.000.000.000.00(MANUAL DIFFERENTIAL)2016-07-29 12:16:00 Test Item Value Reference Range Interpretation Comments TOTAL COUNTED (BEAKER) (test code = 1351) PLT MORPHOLOGY (BEAKER) (test code = Normal 486) RBC MORPHOLOGY (BEAKER) (test code = Normal 762) ATYPICAL LYMPHS(BEAKER) (test code = Present 9143) COMPREHENSIVE METABOLIC [id number] 11:03:00 Test Item Value Reference Range Interpretation Comments TOTAL PROTEIN 4.8 gm/dL 6.0-8.3 L (BEAKER) (test code = 770) ALBUMIN (BEAKER) 2.5 g/dL 3.5-5.0 L (test code = 1145) ALKALINE PHOSPHATASE 77 U/L 40-150 (BEAKER) (test code = 346) BILIRUBIN TOTAL 2.0 mg/dL 0.2-1.2 H (BEAKER) (test code = 377) SODIUM (BEAKER) (test 132 meq/L 136-145 L code = 381) POTASSIUM (BEAKER) 3.1 meq/L 3.5-5.1 L (test code = 379) CHLORIDE (BEAKER) 103 meq/L 98-107 (test code = 382) CO2 (BEAKER) (test 22 meq/L 22-29 code = 355) BLOOD UREA NITROGEN 11 mg/dL 7-21 (BEAKER) (test code = 354) CREATININE (BEAKER) 0.65 mg/dL 0.57-1.25 (test code = 358) GLUCOSE RANDOM 164 mg/dL 70-105 H (BEAKER) (test code = 652) CALCIUM (BEAKER) 7.0 mg/dL 8.4-10.2 L (test code = 697) AST (SGOT) (BEAKER) 13 U/L 5-34 (test code = 353) ALT (SGPT) (BEAKER) 27 U/L 6-55 (test code = 347) EGFR (BEAKER) (test 121 ESTIMATE D GFR IS code = 1092) mL/min/1.73 sq NOT ACCURA TE m CREATININE CLEARANCE IN PREDICTING GLOMERULAR FILTRATION RATE . ESTIMATED GFR I S NOT APPLICABLE FOR DIALYSIS PATIEN TS. LACTIC ACID, VENOUS, WHOLE [id number] 10:41:00 Test Item Value Reference Range Interpretation Comments LACTATE BLOOD VENOUS (2) (BEAKER) 1.5 mmol/L 0.5-2.2 (test code = 2872) Effective 10/12/2015: Units/Reference Range ChangeNew: 0.5-2.2 mmol/L Previous: 5- 20 mg/dLPOCT-GLUCOSE [id number] 10:05:00 Test Item Value Reference Range Interpretation Comments POC-GLUCOSE METER 166 mg/dL 70-[address] [facility] 6720 (BEAKER) (test code = ERNESTO CAAL 1538) [address] COMPREHENSIVE METABOLIC [id number] 09:48:00 Test Item Value Reference Range Interpretation Comments TOTAL PROTEIN 5.1 gm/dL 6.0-8.3 L (BEAKER) (test code = 770) ALBUMIN (BEAKER) 2.6 g/dL 3.5-5.0 L (test code = 1145) ALKALINE PHOSPHATASE 79 U/L 40-150 (BEAKER) (test code = 346) BILIRUBIN TOTAL 2.6 mg/dL 0.2-1.2 H (BEAKER) (test code = 377) SODIUM (BEAKER) (test 132 meq/L 136-145 L code = 381) POTASSIUM (BEAKER) 3.4 meq/L 3.5-5.1 L (test code = 379) CHLORIDE (BEAKER) 103 meq/L 98-107 (test code = 382) CO2 (BEAKER) (test 21 meq/L 22-29 L code = 355) BLOOD UREA NITROGEN 9 mg/dL 7-21 (BEAKER) (test code = 354) CREATININE (BEAKER) 0.61 mg/dL 0.57-1.25 (test code = 358) GLUCOSE RANDOM 115 mg/dL 70-105 H (BEAKER) (test code = 652) CALCIUM (BEAKER) 7.2 mg/dL 8.4-10.2 L (test code = 697) AST (SGOT) (BEAKER) 13 U/L 5-34 (test code = 353) ALT (SGPT) (BEAKER) 29 U/L 6-55 (test code = 347) EGFR (BEAKER) (test 131 ESTIMATE D GFR IS code = 1092) mL/min/1.73 sq NOT ACCURA TE m CREATININE CLEARANCE IN PREDICTING GLOMERULAR FILTRATION RATE . ESTIMATED GFR I S NOT APPLICABLE FOR DIALYSIS PATIEN TS. Specimen slightly [id number] 08:06:00 Test Item Value Reference Range Interpretation Comments PHOSPHORUS (BEAKER) (test code = 1.9 mg/dL 2.3-4.7 L 604) [id number] 08:06:00 Test Item Value Reference Range Interpretation Comments MAGNESIUM (BEAKER) (test code = 1.5 mg/dL 1.6-2.6 L 627) BLOOD [id number] 17:00:00 Test Item Value Reference Range Interpretation Comments CULTURE (BEAKER) (test No growth in 5 days code = 1095) CBC W/PLT COUNT & AUTO [id number] 11:11:00 Test Item Value Reference Range Interpretation Comments WHITE BLOOD CELL COUNT (BEAKER) 0.3 K/ L 4.0-10.0 LL (test code = 775) RED BLOOD CELL COUNT (BEAKER) 1.99 M/ L 4.20-5.80 L (test code = 761) HEMOGLOBIN (BEAKER) (test code = 6.8 GM/DL 13.0-16.8 L 410) HEMATOCRIT (BEAKER) (test code = 18.9 % 40.0-50.0 L 411) MEAN CORPUSCULAR VOLUME (BEAKER) 95.4 fL 82.0-98.0 (test code = 753) MEAN CORPUSCULAR HEMOGLOBIN 34.3 pg 27.0-33.0 H (BEAKER) (test code = 751) MEAN CORPUSCULAR HEMOGLOBIN CONC 36.0 GM/DL 32.0-36.0 (BEAKER) (test code = 752) RED CELL DISTRIBUTION WIDTH 16.2 % 10.3-14.2 H (BEAKER) (test code = 412) PLATELET COUNT (BEAKER) (test code 13 K/CU MM 150-430 L = 756) MEAN PLATELET VOLUME (BEAKER) 8.3 fL 6.5-10.5 (test code = 754) NUCLEATED RED BLOOD CELLS (BEAKER) 0 /100 WBC 0-0 (test code = 413) NEUTROPHILS RELATIVE PERCENT 4 % (BEAKER) (test code = 429) LYMPHOCYTES RELATIVE PERCENT 85 % (BEAKER) (test code = 430) MONOCYTES RELATIVE PERCENT 9 % (BEAKER) (test code = 431) EOSINOPHILS RELATIVE PERCENT 2 % (BEAKER) (test code = 432) BASOPHILS RELATIVE PERCENT 0 % (BEAKER) (test code = 437) NEUTROPHILS ABSOLUTE COUNT 0.01 K/ L 1.80-8.00 L (BEAKER) (test code = 670) LYMPHOCYTES ABSOLUTE COUNT 0.24 K/ L 1.48-4.50 L (BEAKER) (test code = 414) MONOCYTES ABSOLUTE COUNT (BEAKER) 0.03 K/ L 0.00-1.30 (test code = 415) EOSINOPHILS ABSOLUTE COUNT 0.01 K/ L 0.00-0.50 (BEAKER) (test code = 416) BASOPHILS ABSOLUTE COUNT (BEAKER) 0.00 K/ L 0.00-0.20 (test code = 417) 0.000.900.000.000.000.000.00(MANUAL DIFFERENTIAL)2016-07-28 11:11:00 Test Item Value Reference Range Interpretation Comments TOTAL COUNTED (BEAKER) (test code = 1351) WBC MORPHOLOGY (BEAKER) (test code = Normal 487) PLT MORPHOLOGY (BEAKER) (test code = Normal 486) RBC MORPHOLOGY (BEAKER) (test code = Normal 762) COMPREHENSIVE METABOLIC [id number] 06:53:00 Test Item Value Reference Range Interpretation Comments TOTAL PROTEIN 4.9 gm/dL 6.0-8.3 L (BEAKER) (test code = 770) ALBUMIN (BEAKER) 2.6 g/dL 3.5-5.0 L (test code = 1145) ALKALINE PHOSPHATASE 86 U/L 40-150 (BEAKER) (test code = 346) BILIRUBIN TOTAL 1.1 mg/dL 0.2-1.2 (BEAKER) (test code = 377) SODIUM (BEAKER) (test 132 meq/L 136-145 L code = 381) POTASSIUM (BEAKER) 3.4 meq/L 3.5-5.1 L (test code = 379) CHLORIDE (BEAKER) 104 meq/L 98-107 (test code = 382) CO2 (BEAKER) (test 22 meq/L 22-29 code = 355) BLOOD UREA NITROGEN 8 mg/dL 7-21 (BEAKER) (test code = 354) CREATININE (BEAKER) 0.61 mg/dL 0.57-1.25 (test code = 358) GLUCOSE RANDOM 113 mg/dL 70-105 H (BEAKER) (test code = 652) CALCIUM (BEAKER) 7.2 mg/dL 8.4-10.2 L (test code = 697) AST (SGOT) (BEAKER) 14 U/L 5-34 (test code = 353) ALT (SGPT) (BEAKER) 27 U/L 6-55 (test code = 347) EGFR (BEAKER) (test 131 ESTIMATE D GFR IS code = 1092) mL/min/1.73 sq NOT ACCURA TE m CREATININE CLEARANCE IN PREDICTING GLOMERULAR FILTRATION RATE . ESTIMATED GFR I S NOT APPLICABLE FOR DIALYSIS PATIEN TS. [id number] 06:52:00 Test Item Value Reference Range Interpretation Comments PHOSPHORUS (BEAKER) (test code = 2.1 mg/dL 2.3-4.7 L 604) [id number] 06:52:00 Test Item Value Reference Range Interpretation Comments MAGNESIUM (BEAKER) (test code = 1.6 mg/dL 1.6-2.6 627) VANCOMYCIN LEVEL, [id number] 17:51:00 Test Item Value Reference Range Interpretation Comments VANCOMYCIN TROUGH (BEAKER) (test 16.1 ug/mL 10.0-20.0 code = 522) FLOW CYTOMETRY [id number] 14:13:00 Test Item Value Reference Range Interpretation Comments FLOW CYTOMETRY RESULT See Separate Report POINTER (BEAKER) (test code = 2758) FLOW CYTOMETRY AP CASE # [id number] (BEAKER) (test code = 2759) FLOW [id number] 13:03:00 Test Item Value Reference Range Interpretation Comments LAB AP CPT CODE (BEAKER) (test code = 80085 2749) URINALYSIS W/ [id number] 11:45:00 Test Item Value Reference Range Interpretation Comments COLOR (BEAKER) (test code Yellow = 470) CLARITY (BEAKER) (test Clear code = 469) SPECIFIC GRAVITY UA 1.012 1.001-1.035 (BEAKER) (test code = 468) PH UA (BEAKER) (test code 5.5 5.0-8.0 = 467) PROTEIN UA (BEAKER) (test 10 mg/dL Negative A code = 464) GLUCOSE UA (BEAKER) (test Negative Negative code = 365) KETONES UA (BEAKER) (test Negative Negative code = 371) BILIRUBIN UA (BEAKER) Negative Negative (test code = 462) BLOOD UA (BEAKER) (test Negative Negative code = 461) NITRITE UA (BEAKER) (test Negative Negative code = 465) LEUKOCYTE ESTERASE UA Negative Negative (BEAKER) (test code = 466) UROBILINOGEN UA (BEAKER) 0.2 mg/dL 0.2-1.0 (test code = 463) RBC UA (BEAKER) (test code 0 /HPF = 519) WBC UA (BEAKER) (test code 1 /HPF = 520) BACTERIA (BEAKER) (test Few code = 517) MUCUS (BEAKER) (test code Occasional = 1574) HYALINE CASTS (BEAKER) 2 /LPF (test code = 514) SOURCE(BEAKER) (test code Urine, Clean Catch = 2795) CBC W/PLT COUNT & AUTO [id number] 09:00:00 Test Item Value Reference Range Interpretation Comments WHITE BLOOD CELL COUNT (BEAKER) 0.4 K/ L 4.0-10.0 LL (test code = 775) RED BLOOD CELL COUNT (BEAKER) 2.34 M/ L 4.20-5.80 L (test code = 761) HEMOGLOBIN (BEAKER) (test code = 7.6 GM/DL 13.0-16.8 L 410) HEMATOCRIT (BEAKER) (test code = 22.5 % 40.0-50.0 L 411) MEAN CORPUSCULAR VOLUME (BEAKER) 96.2 fL 82.0-98.0 (test code = 753) MEAN CORPUSCULAR HEMOGLOBIN 32.7 pg 27.0-33.0 (BEAKER) (test code = 751) MEAN CORPUSCULAR HEMOGLOBIN CONC 34.0 GM/DL 32.0-36.0 (BEAKER) (test code = 752) RED CELL DISTRIBUTION WIDTH 16.1 % 10.3-14.2 H (BEAKER) (test code = 412) PLATELET COUNT (BEAKER) (test code 3 K/CU MM 150-430 LL = 756) MEAN PLATELET VOLUME (BEAKER) 11.7 fL 6.5-10.5 H (test code = 754) NUCLEATED RED BLOOD CELLS (BEAKER) 0 /100 WBC 0-0 (test code = 413) NEUTROPHILS RELATIVE PERCENT 6 % (BEAKER) (test code = 429) LYMPHOCYTES RELATIVE PERCENT 90 % (BEAKER) (test code = 430) MONOCYTES RELATIVE PERCENT 4 % (BEAKER) (test code = 431) EOSINOPHILS RELATIVE PERCENT 0 % (BEAKER) (test code = 432) BASOPHILS RELATIVE PERCENT 0 % (BEAKER) (test code = 437) NEUTROPHILS ABSOLUTE COUNT 0.02 K/ L 1.80-8.00 L (BEAKER) (test code = 670) LYMPHOCYTES ABSOLUTE COUNT 0.35 K/ L 1.48-4.50 L (BEAKER) (test code = 414) MONOCYTES ABSOLUTE COUNT (BEAKER) 0.02 K/ L 0.00-1.30 (test code = 415) EOSINOPHILS ABSOLUTE COUNT 0.00 K/ L 0.00-0.50 (BEAKER) (test code = 416) BASOPHILS ABSOLUTE COUNT (BEAKER) 0.00 K/ L 0.00-0.20 (test code = 417) 0.000.900.000.000.000.000.00(MANUAL DIFFERENTIAL)2016-07-27 09:00:00 Test Item Value Reference Range Interpretation Comments TOTAL COUNTED (BEAKER) (test code = 1351) PLT MORPHOLOGY (BEAKER) (test code = Normal 486) RBC MORPHOLOGY (BEAKER) (test code = Normal 762) ATYPICAL LYMPHS(BEAKER) (test code = Present 1678) CALCIUM, [id number] 04:59:00 Test Item Value Reference Range Interpretation Comments CALCIUM IONIZED (BEAKER) (test 0.95 mmol/L 1.12-1.27 L code = 698) PH, BLOOD (BEAKER) (test code = 7.48 1810) VANCOMYCIN LEVEL, [id number] 04:45:00 Test Item Value Reference Range Interpretation Comments VANCOMYCIN RANDOM (BEAKER) (test 15.6 ug/mL code = 523) Reference Range: No NormalsHold further dosing for vancomycin level > 20, alert MD and [id number] 04:42:00 Test Item Value Reference Range Interpretation Comments PHOSPHORUS (BEAKER) (test code = 2.0 mg/dL 2.3-4.7 L 604) [id number] 04:42:00 Test Item Value Reference Range Interpretation Comments MAGNESIUM (BEAKER) (test code = 1.7 mg/dL 1.6-2.6 627) BONE MARROW PROCESS.2016-07-26 13:37:00 Test Item Value Reference Range Interpretation Comments ANATOMIC CASE# (BEJIL) (test code [id number] = 1560) ORDERED BY DOCTOR# (KEYANNA) (test code = 0397) PERFORMED BY DOCTOR# VIDHI) (test kelsey code = 4528) CLOT RECEIVED? (BEAKER) (test code Yes = 2459) BIOPSY RECEIVED? (BEAKER) (test Yes code = 2460) CULTURE RECEIVED? (BEAKER) (test No code = 2464) FLOW RECEIVED? (BEAKER) (test code Yes = 2461) CYTOGENICS? (BEAKER) (test code = Yes 2462) MOLECULAR GENETICS? (BEAKER) (test Hold code = 2463) CBC W/PLT COUNT & AUTO [id number] 10:03:00 Test Item Value Reference Range Interpretation Comments WHITE BLOOD CELL COUNT (BEAKER) 0.5 K/ L 4.0-10.0 LL (test code = 775) RED BLOOD CELL COUNT (BEAKER) 1.81 M/ L 4.20-5.80 L (test code = 761) HEMOGLOBIN (BEAKER) (test code = 6.2 GM/DL 13.0-16.8 L 410) HEMATOCRIT (BEAKER) (test code = 17.9 % 40.0-50.0 L 411) MEAN CORPUSCULAR VOLUME (BEAKER) 98.7 fL 82.0-98.0 H (test code = 753) MEAN CORPUSCULAR HEMOGLOBIN 34.0 pg 27.0-33.0 H (BEAKER) (test code = 751) MEAN CORPUSCULAR HEMOGLOBIN CONC 34.5 GM/DL 32.0-36.0 (BEAKER) (test code = 752) RED CELL DISTRIBUTION WIDTH 17.1 % 10.3-14.2 H (BEAKER) (test code = 412) PLATELET COUNT (BEAKER) (test code 12 K/CU MM 150-430 L = 756) MEAN PLATELET VOLUME (BEAKER) 7.8 fL 6.5-10.5 (test code = 754) NUCLEATED RED BLOOD CELLS (BEAKER) 0 /100 WBC 0-0 (test code = 413) NEUTROPHILS RELATIVE PERCENT 2 % (BEAKER) (test code = 429) LYMPHOCYTES RELATIVE PERCENT 98 % (BEAKER) (test code = 430) MONOCYTES RELATIVE PERCENT 0 % (BEAKER) (test code = 431) EOSINOPHILS RELATIVE PERCENT 0 % (BEAKER) (test code = 432) BASOPHILS RELATIVE PERCENT 0 % (BEAKER) (test code = 437) NEUTROPHILS ABSOLUTE COUNT 0.01 K/ L 1.80-8.00 L (BEAKER) (test code = 670) LYMPHOCYTES ABSOLUTE COUNT 0.45 K/ L 1.48-4.50 L (BEAKER) (test code = 414) MONOCYTES ABSOLUTE COUNT (BEAKER) 0.00 K/ L 0.00-1.30 (test code = 415) EOSINOPHILS ABSOLUTE COUNT 0.00 K/ L 0.00-0.50 (BEAKER) (test code = 416) BASOPHILS ABSOLUTE COUNT (BEAKER) 0.00 K/ L 0.00-0.20 (test code = 417) 0.000.900.000.000.000.000.00(MANUAL DIFFERENTIAL)2016-07-26 10:03:00 Test Item Value Reference Range Interpretation Comments TOTAL COUNTED (BEAKER) (test code = 1351) PLT MORPHOLOGY (BEAKER) (test code = Normal 486) RBC MORPHOLOGY (BEAKER) (test code = Normal 762) ATYPICAL LYMPHS(BEAKER) (test code = Present 1678) COMPREHENSIVE METABOLIC [id number] 06:49:00 Test Item Value Reference Range Interpretation Comments TOTAL PROTEIN 4.4 gm/dL 6.0-8.3 L (BEAKER) (test code = 770) ALBUMIN (BEAKER) 2.4 g/dL 3.5-5.0 L (test code = 1145) ALKALINE PHOSPHATASE 57 U/L 40-150 (BEAKER) (test code = 346) BILIRUBIN TOTAL 1.1 mg/dL 0.2-1.2 (BEAKER) (test code = 377) SODIUM (BEAKER) (test 134 meq/L 136-145 L code = 381) POTASSIUM (BEAKER) 3.6 meq/L 3.5-5.1 (test code = 379) CHLORIDE (BEAKER) 109 meq/L 98-107 H (test code = 382) CO2 (BEAKER) (test 20 meq/L 22-29 L code = 355) BLOOD UREA NITROGEN 10 mg/dL 7-21 (BEAKER) (test code = 354) CREATININE (BEAKER) 0.55 mg/dL 0.57-1.25 L (test code = 358) GLUCOSE RANDOM 110 mg/dL 70-105 H (BEAKER) (test code = 652) CALCIUM (BEAKER) 6.9 mg/dL 8.4-10.2 L (test code = 697) AST (SGOT) (BEAKER) 6 U/L 5-34 (test code = 353) ALT (SGPT) (BEAKER) 15 U/L 6-55 (test code = 347) EGFR (BEAKER) (test 147 ESTIMATE D GFR IS code = 1092) mL/min/1.73 sq NOT ACCURA TE m CREATININE CLEARANCE IN PREDICTING GLOMERULAR FILTRATION RATE . ESTIMATED GFR I S NOT APPLICABLE FOR DIALYSIS PATIEN TS. [id number] 06:47:00 Test Item Value Reference Range Interpretation Comments PHOSPHORUS (BEAKER) (test code = 1.9 mg/dL 2.3-4.7 L 604) [id number] 06:47:00 Test Item Value Reference Range Interpretation Comments MAGNESIUM (BEAKER) (test code = 1.7 mg/dL 1.6-2.6 627) CBC W/PLT COUNT & AUTO [id number] 15:39:00 Test Item Value Reference Range Interpretation Comments WHITE BLOOD CELL COUNT (BEAKER) 0.5 K/ L 4.0-10.0 LL (test code = 775) RED BLOOD CELL COUNT (BEAKER) 2.14 M/ L 4.20-5.80 L (test code = 761) HEMOGLOBIN (BEAKER) (test code = 7.4 GM/DL 13.0-16.8 L 410) HEMATOCRIT (BEAKER) (test code = 21.2 % 40.0-50.0 L 411) MEAN CORPUSCULAR VOLUME (BEAKER) 98.7 fL 82.0-98.0 H (test code = 753) MEAN CORPUSCULAR HEMOGLOBIN 34.7 pg 27.0-33.0 H (BEAKER) (test code = 751) MEAN CORPUSCULAR HEMOGLOBIN CONC 35.2 GM/DL 32.0-36.0 (BEAKER) (test code = 752) RED CELL DISTRIBUTION WIDTH 17.5 % 10.3-14.2 H (BEAKER) (test code = 412) PLATELET COUNT (BEAKER) (test code 2 K/CU MM 150-430 LL = 756) MEAN PLATELET VOLUME (BEAKER) 10.6 fL 6.5-10.5 H (test code = 754) NUCLEATED RED BLOOD CELLS (BEAKER) 0 /100 WBC 0-0 (test code = 413) NEUTROPHILS RELATIVE PERCENT 1 % (BEAKER) (test code = 429) LYMPHOCYTES RELATIVE PERCENT 95 % (BEAKER) (test code = 430) MONOCYTES RELATIVE PERCENT 3 % (BEAKER) (test code = 431) EOSINOPHILS RELATIVE PERCENT 1 % (BEAKER) (test code = 432) BASOPHILS RELATIVE PERCENT 0 % (BEAKER) (test code = 437) NEUTROPHILS ABSOLUTE COUNT 0.00 K/ L 1.80-8.00 L (BEAKER) (test code = 670) LYMPHOCYTES ABSOLUTE COUNT 0.48 K/ L 1.48-4.50 L (BEAKER) (test code = 414) MONOCYTES ABSOLUTE COUNT (BEAKER) 0.02 K/ L 0.00-1.30 (test code = 415) EOSINOPHILS ABSOLUTE COUNT 0.01 K/ L 0.00-0.50 (BEAKER) (test code = 416) BASOPHILS ABSOLUTE COUNT (BEAKER) 0.00 K/ L 0.00-0.20 (test code = 417) COMPREHENSIVE METABOLIC [id number] 10:30:00 Test Item Value Reference Range Interpretation Comments TOTAL PROTEIN 4.8 gm/dL 6.0-8.3 L (BEAKER) (test code = 770) ALBUMIN (BEAKER) 2.6 g/dL 3.5-5.0 L (test code = 1145) ALKALINE PHOSPHATASE 63 U/L 40-150 (BEAKER) (test code = 346) BILIRUBIN TOTAL 1.7 mg/dL 0.2-1.2 H (BEAKER) (test code = 377) SODIUM (BEAKER) (test 134 meq/L 136-145 L code = 381) POTASSIUM (BEAKER) 3.6 meq/L 3.5-5.1 (test code = 379) CHLORIDE (BEAKER) 109 meq/L 98-107 H (test code = 382) CO2 (BEAKER) (test 20 meq/L 22-29 L code = 355) BLOOD UREA NITROGEN 10 mg/dL 7-21 (BEAKER) (test code = 354) CREATININE (BEAKER) 0.58 mg/dL 0.57-1.25 (test code = 358) GLUCOSE RANDOM 157 mg/dL 70-105 H (BEAKER) (test code = 652) CALCIUM (BEAKER) 7.2 mg/dL 8.4-10.2 L (test code = 697) AST (SGOT) (BEAKER) 8 U/L 5-34 (test code = 353) ALT (SGPT) (BEAKER) 11 U/L 6-55 (test code = 347) EGFR (BEAKER) (test 139 ESTIMATE D GFR IS code = 1092) mL/min/1.73 sq NOT ACCURA TE m CREATININE CLEARANCE IN PREDICTING GLOMERULAR FILTRATION RATE . ESTIMATED GFR I S NOT APPLICABLE FOR DIALYSIS PATIEN TS. [id number] 10:28:00 Test Item Value Reference Range Interpretation Comments PHOSPHORUS (BEAKER) (test code = 1.9 mg/dL 2.3-4.7 L 604) [id number] 10:28:00 Test Item Value Reference Range Interpretation Comments MAGNESIUM (BEAKER) (test code = 1.5 mg/dL 1.6-2.6 L 627) VANCOMYCIN LEVEL, [id number] 06:09:00 Test Item Value Reference Range Interpretation Comments VANCOMYCIN TROUGH (BEAKER) (test 8.8 ug/mL 10.0-20.0 L code = 522)
--- NOTE | 2022-10-08 10:54 | ER ---
Nurse's Notes [facility] [place] Name: Yonatan Carvajal Age: 77 yrs Sex: Male : 1945 Arrival Date: 10/08/2022 Time: 10:32 Bed 11 Private MD: Diagnosis: Pain in left knee Presentation: 10/08 10:40 Chief complaint: Patient states: L knee pain for 3 weeks. [facility] for 1 month. Coronavirus screen: Vaccine status: Patient reports receiving the 2nd dose of the covid vaccine. Client denies travel out of the [place] in the last 14 days. At this time, the client does not indicate any symptoms associated with coronavirus-19. Ebola Screen: Patient denies travel to an Ebola-affected area in the 21 days before illness onset. Initial Sepsis Screen: Does the patient meet any 2 criteria? No. Patient's initial sepsis screen is negative. Does the patient have a suspected source of infection? Yes: Bone or joint infection. Risk Assessment: Do you want to hurt yourself or someone else? Patient reports no desire to harm self or others. Onset of symptoms was September 15, 2022. 10:40 Method Of Arrival: Ambulatory ll1 10:40 Acuity: [place] 4 ll1 Triage Assessment: 10:41 General: Appears in no apparent distress. Behavior is calm, cooperative, appropriate ll1 for age. Pain: Complains of pain in L knee. Musculoskeletal: Circulation, motion, and sensation intact. Capillary refill < 3 seconds. 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 - Social history:: Smoking status: Patient denies any tobacco usage or history of. Screenin:[address] [facility] ED Fall Risk Assessment (Adult) History of falling in the last 3 months, ph including since admission No falls in past 3 months (0 pts) Confusion or Disorientation No (0 pts) Intoxicated or Sedated No (0 pts) Impaired Gait Yes (1 pt) Mobility Assist Device Used No (0 pt) Altered Elimination No (0 pt) Score/Fall Risk Level 0 - 2 = Low Risk Oriented to surroundings, Maintained a safe environment, Hourly rounding (assess needs \T\ fall precautionary measures) done. Abuse screen: Denies threats or abuse. Denies injuries from another. Nutritional screening: No deficits noted. Tuberculosis screening: No symptoms or risk factors identified. Assessment: 11:12 General: Appears in no apparent distress. comfortable, well groomed, Behavior is calm, ph cooperative, appropriate for age. Pain: Complains of pain in left knee Pain radiates to left leg. Neuro: Level of Consciousness is awake, alert, obeys commands, Oriented to person, place, time, situation. Musculoskeletal: Circulation, motion, and sensation intact. Vital Signs: 10:40 BP 128 / 63; Pulse 87; Resp 17; Temp 98.5; Pulse Ox 92% ; Weight 82.1 kg; Height 5 ft. ll1 10 in. ; Pain 8/10; 10:40 Body Mass Index 25.97 (82.10 kg, 177.8 cm) ll1 10:40 Pain Scale: Adult ll1 ED Course: 10:34 Patient arrived in ED. rg4 10:41 Triage completed. ll1 10:41 Arm band placed on Patient placed in an exam room, on a stretcher. ll1 10:42 Jessenia Louie FNP-C is PHCP. kb 10:42 Kirill Farley MD is Attending Physician. kb 10:44 Adia Cuevas, LESLIE is Primary Nurse. ph 10:45 Patient has correct armband on for positive identification. Bed in low position. Call ph light in reach. Side rails up X 1. Pulse ox on. NIBP on. Door closed. Noise minimized. 11:12 No provider procedures requiring assistance completed. Patient did not have IV access ph during this emergency room visit. Administered Medications: No medications were administered Medication: 10:45 VIS not applicable for this client. ph Outcome: 10:54 Discharge ordered by . kb 11:13 Discharged to home via wheelchair. ph 11:13 Condition: good 11:13 Discharge instructions given to patient, Instructed on discharge instructions, follow up and referral plans. medication usage, Demonstrated understanding of instructions, follow-up care, medications, Prescriptions given X 1. 11:13 Patient left the ED. ph Signatures: Jessenia Louie FNP-C FNP-Adia Ardon RN RN Padmini Bear rg4 Ortiz Chaney RN RN ll1
--- NOTE | 2022-10-08 10:55 | EDPHYS ---
Physician Documentation [facility] Name: Yonatan Carvajal Age: 77 yrs Sex: Male : 1945 Arrival Date: 10/08/2022 Time: 10:32 Bed 11 Private MD: ED Physician Kirill Farley HPI: 10/08 10:56 This 77 yrs old Male presents to ER via Ambulatory with complaints of Leg Pain. kb 10:56 The patient presents with decreased range of motion, pain. The complaints affect the kb left knee. Context: The problem was sustained outdoors, resulted from twisting of the extremity, the patient can fully bear weight, the patient is able to ambulate. Onset: The symptoms/episode began/occurred 3 week(s) ago. Modifying factors: The symptoms are alleviated by nothing. the symptoms are aggravated by movement. Associated signs and symptoms: The patient has no apparent associated signs or symptoms. Treatment prior to arrival includes: splinting the affected extremity. Severity of symptoms: At their worst the symptoms were moderate, in the emergency department the symptoms are unchanged. The patient has not experienced similar symptoms in the past. The patient has been recently seen by a physician:. Pt reports left knee pain after twisting it while getting out of the car 3 weeks ago. [facility], [facility] and scheduled for a MRI, but they aren't able to do until for 30 days so he came here to get it done. . 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 - Social history:: Smoking status: Patient denies any tobacco usage or history of. ROS: 10:55 Constitutional: Negative for fever, chills, and weight loss. kb 10:55 MS/extremity: Positive for pain, of the left knee. 10:55 All other systems are negative. Exam: 10:55 Constitutional: This is a well developed, well nourished patient who is awake, alert, kb and in no acute distress. Head/Face: Normocephalic, atraumatic. ENT: Moist Mucous membranes Cardiovascular: Regular rate and rhythm with a normal S1 and S2. No gallops, murmurs, or rubs. No pulse deficits. Respiratory: Respirations even and unlabored. No increased work of breathing. Talking in full sentences Abdomen/GI: Soft, non-tender. No distention Skin: Warm, dry with normal turgor. Normal color. Neuro: Awake and alert, GCS 15, oriented to person, place, time, and situation. Moves all extremities. Normal gait. Psych: Awake, alert, with orientation to person, place and time. Behavior, mood, and affect are within normal limits. 10:55 Musculoskeletal/extremity: Extremities: grossly normal except: noted in the left knee: decreased ROM, pain, ROM: limited active range of motion due to pain, Circulation is intact in all extremities. Sensation intact. Weight bearing: able to fully bear weight. Vital Signs: 10:40 BP 128 / 63; Pulse 87; Resp 17; Temp 98.5; Pulse Ox 92% ; Weight 82.1 kg; Height 5 ft. ll1 10 in. ; Pain 8/10; 10:40 Body Mass Index 25.97 (82.10 kg, 177.8 cm) ll1 10:40 Pain Scale: Adult ll1 MDM: 10:42 Patient medically screened. kb 10:56 Data reviewed: vital signs, nurses notes. kb 10:57 Differential diagnosis: dislocation, open fracture, closed fracture, tendonitis, kb sprain. Test considered but Not performed: X-ray: x-ray considered but pt had one done on Saturday. Counseling: I had a detailed discussion with the patient and/or guardian regarding: the historical points, exam findings, and any diagnostic results supporting the discharge/admit diagnosis, the need for outpatient follow up, a family practitioner, a orthopedic surgeon, to return to the emergency department if symptoms worsen or persist or if there are any questions or concerns that arise at home. ED course: Pt educated that we do not do nonemergent MRIs in the ED. Recommended he get the order for MRI from the [facility] and ask to schedule it here with central scheduling. Pt calling [facility] now. Administered Medications: No medications were administered Disposition: 12:02 Co-signature as Attending Physician, Kirill Farley MD I reviewed the patient's care rn provided by the Advanced Practice Provider and agree with the diagnosis and treatment plan. Disposition Summary: 10/08/22 10:54 Discharge Ordered Location: Home kb Condition: Stable kb Diagnosis - Pain in left knee kb Followup: kb - With: Emergency Department - When: As needed - Reason: Worsening of condition Followup: kb - With: Private Physician - When: 2 - 3 days - Reason: Recheck today's complaints, Continuance of care, Re-evaluation by your physician Discharge Instructions: - Discharge Summary Sheet kb - Knee Sprain, Adult, [id number] kb - Acute Knee Pain, Adult, [id number] kb Forms: - Medication Reconciliation Form kb - Thank You Letter kb - Antibiotic Education kb - Prescription Opioid Use kb Prescriptions: - orphenadrine citrate 100 mg Oral Tablet Sustained Release - take 1 tablet by ORAL route 2 times per day As needed; 20 tablet; Refills: 0, kb Product Selection Permitted Signatures: Jessenia Louie, RICK-[employer]ETTING MACHINE TENDER-Kirill Green MD MD rn Ortiz Chaney RN RN ll1
[2022-10-08 11:18] VITALS: BP 128/63; TEMP 98.5; O2SAT 92
== END 2022-10-08 11:13 | disposition home or self-care (01) ==
LOC: ER 10:32
DX: M25.562 Pain in left knee (principal); Z88.0 Allergy status to penicillin
CPT/HCPCS: 99283

== ENCOUNTER 2022-11-06 10:31 | Emergency (ER) | payer OTHER ==
--- OUTSIDE RECORDS SUMMARY | 2022-11-06 10:37 | XMS REPORT | Continuity of Care Document ---
:1945 Author Organization [facility] t Address [address] [facility] [place] [address] [place] [address] Care Team Providers Name Role Phone Reyna Primary Care Physician Elda Attending Clinician Unavailable PINKY Attending Clinician Unavailable JEB PASCUAL Attending Clinician Unavailable Elda Admitting Clinician Unavailable PINKY Admitting Clinician Unavailable JEB PASCUAL Admitting Clinician Unavailable Payers Payer Name Policy Type Policy Number Effective Date Expiration Date S fabricio [facility] [id number] 2021 [facility] 00:00:00 (MEDICARE REPLACEMENT/ADVANTA GE - PPO) [facility] [id number] (MEDICARE REPLACEMENT/ADVANTA GE - PPO) Problems Condition Condition Condition Status Onset [...] [facility] Hypokalemi Hypokalemi Disease Active [facility] [...] without any allergic reaction during 2016 admission SULFA Allergy Active Rash, [place] (SULFONA to Wheezing da MIDE [facility] Medical ANTIBIOT e Group ICS) PENICILL Allergy Active [place] ANIC to da SULFONE [facility] BL e al BETA-LAC Health TAMASE Outreac INHIBITO h RS Program Family History Family Member Diagnosis Comments Start Date Stop Date Source Natural mother Stroke [facility] Social History Social Habit Start Date Stop Date Quantity Comments Source History of Cigarette Smoker [facility] 2016-07-05 2016-07-05 [facility] (finding) Sex Ass[birth year] At [birth year] [facility] 00:00:00 00:00:00 [facility] Smoking Status Start Date Stop Date Source Light Tobacco Smoker [facility] Heavy Tobacco Smoker [facility] Ex-smoker 2016-07-05 00:00:00 2016-07-05 00:00:00 [facility] Medications Ordered Filled Start Stop Current Ordering Indication Dosage Frequency Signature Comments Components Source Medication Medication Date Date Medication? Clinician (SIG) Name Name finasteride Yes 5mg QD Take [address] (PROSCAR) 5 2-27 by mouth Luke s mg tablet 14:49: daily. Medica l 40 [place] tamsulosin 2017-0 Yes .4mg QD Take 0.[address] (FLOMAX) 2-27 mg by [facility] 0.4 mg Cp24 14:49: mouth Medic al 24 hr 40 daily. [place] capsule finasteride 2017-0 Yes 5mg QD Take [address] (PROSCAR) 5 2-27 by mouth Luke s mg tablet 14:49: daily. Medica l [address] [place] tamsulosin 2017-0 Yes .4mg QD Take 0.[address] (FLOMAX) 2-27 mg by [facility] 0.4 mg Cp24 14:49: mouth Medic al 24 hr 40 daily. [place] capsule Adult Low Adult Low No Adult Low [place] Dose Dose Dose da Aspirin Aspirin Aspirin [facility] Program atorvastati atorvastati No atorvastat [place] n n in da [facility] Program azithromyci azithromyci No 1 Q1D azithromyc [...] finasteride finasteride No finasterid [place] e da [facility] Program ivermectin ivermectin No ivermectin [place] 3 mg tablet 3 mg tablet 3 mg d a Take 5 Take 5 tablet [facility] tablets by tablets by Take 5 a l mouth today mouth today tablets by [facility] and repeat and repeat mouth Ou treac in 2 days. in 2 days. today and h repeat in Program 2 days. lisinopril lisinopril No lisinopril [place] [facility] Program tamsulosin tamsulosin No 1capsul Q1D tamsulosin [place] 0.4 mg 0.4 mg e(s) 0.4 mg da capsule capsule capsule Medica l Take 1 Take 1 Take 1 Group capsule capsule capsule every day every day every day by oral by oral by oral route. route. route. Medrol Medrol No Medrol [place] (Yahir) 4 mg (Yahir) 4 mg (Yahir) 4 mg da tablets in tablets [facility] dose pack a dose pack a dose al Take as Take as pack Take Heal th directed directed as Outreac directed h Program metformin metformin No metformin [place] [facility] tamsulosin tamsulosin No tamsulosin [place] [facility] al Health Outreac h Program Vital Signs Vital Name Observation Time Observation Value Comments Source BP Diastolic 2022-02-14 00:00:00 76 [facility]Hg[facility] Height 2022-02-14 00:00:00 69 [facility]in_i[facility] BMI (Body Mass 2022-02-14 00:00:00 27.7 kg/m2 [facility] Medical Index) Group BP Systolic 2022-02-14 00:00:00 123 mm[Hg] [facility] Body Weight 2022-02-14 00:00:00 187.3 [lb_av] [facility] BP Diastolic 2020-06-07 00:00:00 70 [facility]Hg[facility] Height 2020-06-07 00:00:00 70 [in_i] [facility] BMI (Body Mass 2020-06-07 00:00:00 26.1 kg/m2 [facility] retoucher [facility] Index) Health Outreach Program BP Systolic 2020-06-07 00:00:00 110 mm[facility]Hg] [facility] Body Weight 2020-06-07 00:00:00 2905.6 [oz_av] [facility] Procedures Procedure Date / Time Performed Performing Clinician Sour e Tonsillectomy [facility] Appendectomy [facility] Plan of Care Planned Activity Planned Date Details Comments Source Diagnostic Test 2020-06-07 COVID-19 RNA [facility] Pending 00:00:00 (SARS-CoV-2), QL, [facility] eyeglass lens grinder-PCR, respiratory Outreac h Program specimen [code = COVID-19 RNA (SARS-CoV-2), QL, eyeglass lens grinder-PCR, respiratory specimen] Encounters Start End Encounter Admission Attending Care Care Encounter Source Date/Time Date/Time Type Type Clinicians Facility Department ID 2022-02-14 2022-02-14 Outpatient Yan_W MMG [facility] [id number] [place] 00:00:00 00:00:00 0907 Medical Group 2022-02-14 2022-02-14 YOSSI Weinstein [place] - [id number] [place] 00:00:00 00:00:00 MD: Celeste [facility] [address], [facility], [place]olaryngol [place] [facility] [id number] , Ph. 2022-01-11 2022-01-11 Outpatient Mike_W YOSSI [facility] [id number] [place] 00:00:00 00:00:00 0804 Medical Group 2020-07-18 2020-07-18 Outpatient [facility] [id number] [place] 00:00:00 00:00:00 [id number] [facility] Health Outreac h Program 2020-06-09 2020-06-09 Outpatient [facility] [id number] [place] 04:25:00 04:25:00 [id number] [facility] 2020-06-07 2020-06-07 Outpatient [facility] [id number] [place] 06:37:00 06:37:00 [id number] [facility] 2020-06-07 2020-06-07 [facility] [place] - [id number] [place] 00:00:00 00:00:00 Veronica Wills Mo, [facility] GRAIN SAMPLER: [address] [facility] [address] [facility] , Ph. Results Test Description Test Time Test Comments Results Result Comments Source BLOOD CULTURE, AFB ISOLATOR 2016-09-12 11:08:00 Test Item Value Reference Range Interpretation Comme nts CULTURE (BEAKER) (test code = 1095) No acid-fast bacilli isolated i n 42 days BONE MARROW [id number] 12:57:00Bone Marrow Pathology Report Case: [id number] Authorizing Provider: Minor Hernandez MD Ordering Provider:Minor Hernandez MD Ordering Location: [address] Collected: 08/06/2016 1140 SERVICE Pathologist: Malorie Jaime MD Received: 08/06/2016 1209 Specimens: A) - Bone B) - C) - [facility] Genetics Result;Classical cytogenetic studies show a normal karyotype. [...] AND LYMPHOPENIA Signing Pathologist Direct Phone Line: [phone] than 5% (1%) blasts are noted on aspirate smears, as confirmed by flow cytometry ([id number]). These results do not provide morphologic or immunophenotypic evidence of residual acute myeloid leukemia. Cytogenetic studies are pending, including FISH for CBFB rearrangement (inv 16), and will be reported separately by [facility] [employer]. An addendum incorporating these results will follow.44426; 51010; 65021 x 2; 11619; 12067UIP, s/p therapyBone marrowAll parts are labeled with [...] 3 % Promyelocytes 29 % Myelocytes/Metamyelocytes 28 %Bands/Segmented granulocytes 1 % Eosinophils and precursors 0 [...] of myeloid and erythroid precursors present with completematuration. Megakaryocytes are adequate and include a few hyperchromatic and/or hypersegmented forms. Bony trabeculae: unremarkableStainable storage iron cannot be assessed due to the lack of adequate particles on an iron stain performed on the clot section. PERIPHERAL BLOOD:RBCs:Normochromic, mild anisopoikilocytosis WBCs:Mild toxic granulation Platelets: Normal numberFLOW CYTOMETRY [id number] 09:04:00 Test Item Value Reference Range Interpretation Comments FLOW CYTOMETRY RESULT See Separate Report POINTER (KEYANNA) (test code = 2758) FLOW CYTOMETRY AP CASE # [id number] (BEAKER) (test code = 2759) FLOW [id number] 16:28:00 Test Item Value Reference Range Interpretation Comments LAB AP CPT CODE (BEAKER) (test code = 08700 2749) BONE MARROW PROCESS.2016-08-06 12:21:00 Test Item Value Reference Range Interpretation Comments ANATOMIC CASE# (BEAKER) (test code [id number] = 2470) ORDERED BY DOCTOR# (KEYANNA) (test Zeina, S code = 2457) PERFORMED BY DOCTOR# (KEYANNA) (test Glenn code = 2458) CLOT RECEIVED? (BEAKER) (test code Yes = 2459) BIOPSY RECEIVED? (BEAKER) (test Yes code = 2460) CULTURE RECEIVED? (BEAKER) (test No code = 2464) FLOW RECEIVED? (BEAKER) (test code Hold = 2461) CYTOGENICS? (BEAKER) (test code = Hold 2462) MOLECULAR GENETICS? (KEYANNA) (test Hold code = 2463) BONE MARROW [id number] 10:57:00Bone Marrow Pathology Report Case: [id number] Authorizing Provider: Minor Hernandez MD Ordering Provider: Minor Hernandez MD Ordering Location: [address] Collected: 07/26/2016 1150 SERVICE Pathologist: Gracia Messer Received: 07/26/2016 1103 MD Alber Specimens: A) - Bone Marrow B) - Bone Marrow C) - Bone Marrow This addendum is being issued to report results of cytogenetic studies performed by [facility] [employer]:46,XY[10]Limited analysis. Only ten cells were available for cytogenetic analysis from one culture. These ten cells have a normal male complement with no cytogenetic evidence of the abnormal cell lines identified in the previous sample. This does not rule out the presence of clonal abnormalities. BONE MARROW ASPIRATE, CLOT, AND DECALCIFIED BIOPSY: - HYPOCELLULAR MARROWWITH APPROXIMATELY 1% BLASTS AND INCREASED LYMPHOCYTES, MONOCYTES AND PLASMA CELLS, CONSISTENT WITH REPORTED HISTORY OF INDUCTION CHEMOTHERAPY PERIPHERAL BLOOD: - PANCYTOPENIA- NO CIRCULATING BLASTS Signing Pathologist Direct Phone Line: [phone] correlate with pending cytogenetic studies for final interpretation.46914; 42632; 05165 x 2; 72491; 12483; 87233; 37281 x 9AML, s/p chemo. Day 14 marrow.A. One unstained slide for Pema's iron stain; [...] osseous tissue. The specimen is entirely submitted incassette C1 for decalcification. DB/plBONE MARROW ASPIRATE:QUALITY:Aspirate- AdequateTouch imprint- AdequateMARROW DIFFERENTIAL COUNT: Number of cells counted: 100- % Blasts - % Promyelocytes - % Myeloc ytes/Metamyelocytes - % Bands/Segmented granulocytes - % Eosinophils and precursors - % Basophils and precursors - % Erythroid precursors 84 % Lymphocytes 5 % Uiljqpflx78 % Plasma cellsBlasts: Not IncreasedIron stain (performed [...] CD138 highlights scattered and perisinusoidal plasma cells whichare polytypic for kappa and lambda. Bony trabeculae: [...] the diagnostic reportabove: CD34, MPO, CD4, CD138, Avilla, Lambda, CD3, CD20, CD61, E-Cadherin (block C1).The immunohistoch emistry test was developed and its performance characteristics determined by [facility], Pathology Laboratory. It has not [...] clinical laboratory testing.CBC W/PLT COUNT & AUTO [id number] 10:26:00 Test Item Value Reference Range Interpretation [...] = 481) CBC W/PLT COUNT & AUTO [id number] 10:43:00 Test Item Value Reference Range Interpretation [...] (BEAKER) (test code = 1+ few 962) [id number] 06:06:00 Test Item Value Reference Range Interpretation Comments PHOSPHORUS (BEAKER) (test code = 2.4 mg/dL 2.3-4.7 604) [id number] 06:06:00 Test Item Value Reference Range Interpretation Comments MAGNESIUM (BEAKER) (test code = 1.6 mg/dL 1.6-2.6 627) BASIC METABOLIC [id number] 06:06:00 Test Item Value Reference Range Interpretation [...] PATIEN TS. CBC W/PLT COUNT & AUTO [id number] 13:12:00 Test Item Value Reference Range Interpretation [...] few (test code = 478) BASIC METABOLIC [id number] 06:17:00 Test Item Value Reference Range Interpretation [...] S NOT APPLICABLE FOR DIALYSIS PATIEN TS. [id number] 06:15:00 Test Item Value Reference Range Interpretation Comments PHOSPHORUS (BEAKER) (test code = 2.6 mg/dL 2.3-4.7 604) [id number] 06:15:00 Test Item Value Reference Range Interpretation Comments MAGNESIUM (BEAKER) (test code = 1.7 mg/dL 1.6-2.6 627) CBC W/PLT COUNT & AUTO [id number] 07:47:00 Test Item Value Reference Range Interpretation [...] few (test code = 478) BASIC METABOLIC [id number] 06:35:00 Test Item Value Reference Range Interpretation [...] S NOT APPLICABLE FOR DIALYSIS PATIEN TS. [id number] 06:26:00 Test Item Value Reference Range Interpretation Comments PHOSPHORUS (BEAKER) (test code = 1.6 mg/dL 2.3-4.7 L 604) [id number] 06:26:00 Test Item Value Reference Range Interpretation Comments MAGNESIUM (BEAKER) (test code = 1.5 mg/dL 1.6-2.6 L 627) BLOOD [id number] 05:00:00 Test Item Value Reference Range Interpretation Comments CULTURE (BEAKER) (test No growth in 5 days code = 1095) CYTOMEGALOVIRUS ANTIBODY, [id number] 17:40:00 Test Item Value Reference Range Interpretation Comments CYTOMEGALOVIRUS IGG ANTIBODY Positive (BEAKER) (test code = 790) CYTOMEGALOVIRUS ANTIBODY, [id number] 17:40:00 Test Item Value Reference Range Interpretation Comments CYTOMEGALOVIRUS IGM ANTIBODY Negative (BEAKER) (test code = 816) MISCELLANEOUS LAB [id number] 11:06:00 Test Item Value Reference Range Interpretation Comments SCAN RESULT (test code = 1536019) CBC W/PLT COUNT & AUTO [id number] 09:51:00 Test Item Value Reference Range Interpretation [...] 762) ATYPICAL LYMPHS(BEAKER) (test code Present = 0208) BASIC METABOLIC [id number] 06:41:00 Test Item Value Reference Range Interpretation [...] NOT APPLICABLE FOR DIALYSIS PATIEN TS. BLOOD [id number] 17:00:00 Test Item Value Reference Range Interpretation Comments CULTURE (BEAKER) (test No growth in 5 days code = 1095) BLOOD [id number] 17:00:00 Test Item Value Reference Range Interpretation Comments CULTURE (BEAKER) (test No growth in 5 days code = 1095) CBC W/PLT COUNT & AUTO [id number] 11:10:00 Test Item Value Reference Range Interpretation [...] (test Present code = 771) BASIC METABOLIC [id number] 07:05:00 Test Item Value Reference Range Interpretation [...] S NOT APPLICABLE FOR DIALYSIS PATIEN TS. [id number] 06:53:00 Test Item Value Reference Range Interpretation Comments PHOSPHORUS (BEAKER) (test code = 1.6 mg/dL 2.3-4.7 L 604) [id number] 06:53:00 Test Item Value Reference Range Interpretation Comments MAGNESIUM (BEAKER) (test code = 1.6 mg/dL 1.6-2.6 627) CBC W/PLT COUNT & AUTO [id number] 06:44:00 Test Item Value Reference Range Interpretation [...] (test code = Present 1678) BASIC METABOLIC [id number] 03:11:00 Test Item Value Reference Range Interpretation [...] S NOT APPLICABLE FOR DIALYSIS PATIEN TS. [id number] 03:01:00 Test Item Value Reference Range Interpretation Comments PHOSPHORUS (BEAKER) (test code = 1.7 mg/dL 2.3-4.7 L 604) [id number] 03:01:00 Test Item Value Reference Range Interpretation Comments MAGNESIUM (BEAKER) (test code = 1.8 mg/dL 1.6-2.6 627) CREATINE KINASE (CK)2016-07-31 03:01:00 Test Item Value Reference Range Interpretation Comments CREATINE KINASE TOTAL (BEAKER) (test 50 U/L 29-200 code = 380) CMV PCR, [id number] 15:44:00 Test Item Value Reference Range Interpretation [...] and its performance characteristics determined by the [facility] Pathol ogy Department, Section of Molecular Pathology. [...] = 1828) CBC W/PLT COUNT & AUTO [id number] 11:49:00 Test Item Value Reference Range Interpretation [...] ATYPICAL LYMPHS(BEAKER) (test code = Present 1678) [id number] 10:26:00 Test Item Value Reference Range Interpretation Comments PHOSPHORUS (BEAKER) (test code = 1.2 mg/dL 2.3-4.7 LL 604) BASIC METABOLIC [id number] 10:12:00 Test Item Value Reference Range Interpretation [...] S NOT APPLICABLE FOR DIALYSIS PATIEN TS. [id number] 10:10:00 Test Item Value Reference Range Interpretation Comments MAGNESIUM (BEAKER) (test code = 1.2 mg/dL 1.6-2.6 L 627) [id number] 06:55:00 Test Item Value Reference Range Interpretation Comments PHOSPHORUS (BEAKER) (test code = 1.3 mg/dL 2.3-4.7 LL 604) COMPREHENSIVE METABOLIC [id number] 06:55:00 Test Item Value Reference Range Interpretation [...] S NOT APPLICABLE FOR DIALYSIS PATIEN TS. [id number] 06:38:00 Test Item Value Reference Range Interpretation Comments MAGNESIUM (BEAKER) (test code = 1.2 mg/dL 1.6-2.6 L 627) LACTIC ACID, VENOUS, WHOLE [id number] 06:00:00 Test Item Value Reference Range Interpretation Comments LACTATE BLOOD VENOUS (2) (BEAKER) 1.4 mmol/L 0.5-2.2 (test code = 2872) Effective 10/12/2015: Units/Reference Range ChangeNew: 0.5-2.2 mmol/L Previous: 5- 20 mg/dLHEPATIC FUNCTION [id number] 20:44:00 Test Item Value Reference Range Interpretation [...] U/L 6-55 347) LACTIC ACID, VENOUS, WHOLE [id number] 15:38:00 Test Item Value Reference Range Interpretation Comments LACTATE BLOOD VENOUS (2) (BEAKER) 1.2 mmol/L 0.5-2.2 (test code = 2872) Effective 10/12/2015: Units/Reference Range ChangeNew: 0.5-2.2 mmol/L Previous: 5- 20 mg/dLLACTIC ACID, VENOUS, WHOLE [id number] 14:01:00 Test Item Value Reference Range Interpretation Comments LACTATE BLOOD VENOUS (2) (BEAKER) 1.0 mmol/L 0.5-2.2 (test code = 2872) Effective 10/12/2015: Units/Reference Range ChangeNew: 0.5-2.2 mmol/L Previous: 5- 20 mg/dLCBC W/PLT COUNT & AUTO [id number] 12:36:00 Test Item Value Reference Range Interpretation [...] 762) ATYPICAL LYMPHS(BEAKER) (test code = Present 4873) CBC W/PLT COUNT & AUTO [id number] 12:16:00 Test Item Value Reference Range Interpretation [...] (test code = Present 1678) COMPREHENSIVE METABOLIC [id number] 11:03:00 Test Item Value Reference Range Interpretation [...] DIALYSIS PATIEN TS. LACTIC ACID, VENOUS, WHOLE [id number] 10:41:00 Test Item Value Reference Range Interpretation Comments LACTATE BLOOD VENOUS (2) (BEAKER) 1.5 mmol/L 0.5-2.2 (test code = 2872) Effective 10/12/2015: Units/Reference Range ChangeNew: 0.5-2.2 mmol/L Previous: 5- 20 mg/dLPOCT-GLUCOSE [id number] 10:05:00 Test Item Value Reference Range Interpretation Comments POC-GLUCOSE METER 166 mg/dL 70-[address] [facility] 67[address] (BEAKER) (test code = [place] 1538) [address] COMPREHENSIVE METABOLIC [id number] 09:48:00 Test Item Value Reference Range Interpretation [...] APPLICABLE FOR DIALYSIS PATIEN TS. Specimen slightly [id number] 08:06:00 Test Item Value Reference Range Interpretation Comments PHOSPHORUS (BEAKER) (test code = 1.9 mg/dL 2.3-4.7 L 604) [id number] 08:06:00 Test Item Value Reference Range Interpretation Comments MAGNESIUM (BEAKER) (test code = 1.5 mg/dL 1.6-2.6 L 627) BLOOD [id number] 17:00:00 Test Item Value Reference Range Interpretation Comments CULTURE (BEAKER) (test No growth in 5 days code = 1095) CBC W/PLT COUNT & AUTO [id number] 11:11:00 Test Item Value Reference Range Interpretation [...] (test code = Normal 762) COMPREHENSIVE METABOLIC [id number] 06:53:00 Test Item Value Reference Range Interpretation [...] S NOT APPLICABLE FOR DIALYSIS PATIEN TS. [id number] 06:52:00 Test Item Value Reference Range Interpretation Comments PHOSPHORUS (BEAKER) (test code = 2.1 mg/dL 2.3-4.7 L 604) [id number] 06:52:00 Test Item Value Reference Range Interpretation Comments MAGNESIUM (BEAKER) (test code = 1.6 mg/dL 1.6-2.6 627) VANCOMYCIN LEVEL, [id number] 17:51:00 Test Item Value Reference Range Interpretation Comments VANCOMYCIN TROUGH (BEAKER) (test 16.1 ug/mL 10.0-20.0 code = 522) FLOW CYTOMETRY [id number] 14:13:00 Test Item Value Reference Range Interpretation Comments FLOW CYTOMETRY RESULT See Separate Report POINTER (BEAKER) (test code = 2758) FLOW CYTOMETRY AP CASE # [id number] (BEAKER) (test code = 2759) FLOW [id number] 13:03:00 Test Item Value Reference Range Interpretation Comments LAB AP CPT CODE (BEAKER) (test code = 78145 2749) URINALYSIS W/ [id number] 11:45:00 Test Item Value Reference Range Interpretation [...] SOURCE(BEAKER) (test code Urine, Clean Catch = 6525) CBC W/PLT COUNT & AUTO [id number] 09:00:00 Test Item Value Reference Range Interpretation [...] LYMPHS(BEAKER) (test code = Present 1678) CALCIUM, [id number] 04:59:00 Test Item Value Reference Range Interpretation Comments CALCIUM IONIZED (BEAKER) (test 0.95 mmol/L 1.12-1.27 L code = 698) PH, BLOOD (BEAKER) (test code = 7.48 1810) VANCOMYCIN LEVEL, [id number] 04:45:00 Test Item Value Reference Range Interpretation Comments VANCOMYCIN RANDOM (BEAKER) (test 15.6 ug/mL code = 523) Reference Range: No NormalsHold further dosing for vancomycin level > 20, alert MD and [id number] 04:42:00 Test Item Value Reference Range Interpretation Comments PHOSPHORUS (BEAKER) (test code = 2.0 mg/dL 2.3-4.7 L 604) [id number] 04:42:00 Test Item Value Reference Range Interpretation Comments MAGNESIUM (BEAKER) (test code = 1.7 mg/dL 1.6-2.6 627) BONE MARROW PROCESS.2016-07-26 13:37:00 Test Item Value Reference Range Interpretation Comments ANATOMIC CASE# (BEAKER) (test code [id number] = 2470) ORDERED BY DOCTOR# (BEAKER) (test code = 2457) PERFORMED BY DOCTOR# (BEAKER) (test glenn code = 2458) CLOT RECEIVED? (BEAKER) (test code Yes = 2459) BIOPSY RECEIVED? (BEAKER) (test Yes code = 2460) CULTURE RECEIVED? (BEAKER) (test No code = 2464) FLOW RECEIVED? (BEAKER) (test code Yes = 2461) CYTOGENICS? (BEAKER) (test code = Yes 2462) MOLECULAR GENETICS? (BEAKER) (test Hold code = 2463) CBC W/PLT COUNT & AUTO [id number] 10:03:00 Test Item Value Reference Range Interpretation [...] (test code = Present 1678) COMPREHENSIVE METABOLIC [id number] 06:49:00 Test Item Value Reference Range Interpretation [...] S NOT APPLICABLE FOR DIALYSIS PATIEN TS. [id number] 06:47:00 Test Item Value Reference Range Interpretation Comments PHOSPHORUS (BEAKER) (test code = 1.9 mg/dL 2.3-4.7 L 604) [id number] 06:47:00 Test Item Value Reference Range Interpretation Comments MAGNESIUM (BEAKER) (test code = 1.7 mg/dL 1.6-2.6 627) CBC W/PLT COUNT & AUTO [id number] 15:39:00 Test Item Value Reference Range Interpretation [...] 0.00-0.20 (test code = 417) COMPREHENSIVE METABOLIC [id number] 10:30:00 Test Item Value Reference Range Interpretation [...] S NOT APPLICABLE FOR DIALYSIS PATIEN TS. [id number] 10:28:00 Test Item Value Reference Range Interpretation Comments PHOSPHORUS (BEAKER) (test code = 1.9 mg/dL 2.3-4.7 L 604) [id number] 10:28:00 Test Item Value Reference Range Interpretation Comments MAGNESIUM (BEAKER) (test code = 1.5 mg/dL 1.6-2.6 L 627) VANCOMYCIN LEVEL, [id number] 06:09:00 Test Item Value Reference Range Interpretation Comments VANCOMYCIN TROUGH (BEAKER) (test 8.8 ug/mL 10.0-20.0 L code = 522)
[2022-11-06] MEDS ORDERED: KETOROLAC 30 MG/ML INJ ONE (12:03)
--- NOTE | 2022-11-06 12:59 | RAD REPORT ---
[facility] 12:35 pm CLINICAL HISTORY: left leg pain COMPARISON: None FINDINGS: Left common femoral, superficial femoral, greater saphenous, popliteal and posterior tibi al veins are compressible and demonstrate augmentation. Doppler demonstrates good flow. 1.7 centimeter heterogeneous cystic mass popliteal fossa Grayscale, color and spectral analysis performed on all vessels IMPRESSION: No evidence of deep venous thrombosis involving the left lower extremity. 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
--- NOTE | 2022-11-06 13:16 | ER ---
Nurse's Notes [facility] Name: Yonatan Carvajal Age: 77 yrs Sex: Male : 1945 Arrival Date: 11/06/2022 Time: 10:31 Bed IW3 Private MD: Diagnosis: Pain in left knee;Synovial cyst of popliteal space [Andrew], left knee Presentation: 11/06 11:29 Chief complaint: Left knee pain x 7 weeks, worse over last 3 days. Coronavirus screen: hb At this time, the client does not indicate any symptoms associated with coronavirus-19. Ebola Screen: No symptoms or risks identified at this time. Initial Sepsis Screen: Does the patient meet any 2 criteria? No. Patient's initial sepsis screen is negative. Does the patient have a suspected source of infection? No. Patient's initial sepsis screen is negative. Risk Assessment: Do you want to hurt yourself or someone else? Patient reports no desire to harm self or others. Onset of symptoms was September 2022. 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 - Social history:: Smoking status: . - Family history:: not pertinent. - Hospitalizations: : No recent hospitalization is reported. Vital Signs: 11:29 BP 120 / 83; Pulse 89; Resp 18; Temp 97.7; Pulse Ox 100% on R/A; Weight 81.65 kg; hb Height 5 ft. 10 in. ; Pain 7/10; 11:29 Body Mass Index 25.83 (81.65 kg, 177.8 cm) hb 11:29 Pain Scale: Adult hb ED Course: 10:37 Patient arrived in ED. mr 11:01 Kirill Farley MD is Attending Physician. rn 11:31 Triage completed. hb 11:31 Arm band placed on. hb 12:37 Extremity [facility] US In Process Unspecified. EDMS Administered Medications: 11:59 Drug: Ketorolac IM 30 mg Route: IM; Site: left ventrogluteal; hb Outcome: 13:16 Discharge ordered by . rn 13:40 Patient left the ED. hb Signatures: Dispatcher [employer] MASON AngeloRadha mr Kirill Farley MD MD rn Ileana Liz RN RN hb
--- NOTE | 2022-11-06 13:16 | EDPHYS ---
Physician Documentation [facility] Name: Yonatan Carvajal Age: 77 yrs Sex: Male : 1945 Arrival Date: 11/06/2022 Time: 10:31 Bed IW3 Private MD: ED Physician Kirill Farley HPI: 11/06 12:23 This 77 yrs old Male presents to ER via Ambulatory with complaints of knee pain. rn 12:23 The patient presents with pain, that is chronic. The complaints affect the left knee. rn Onset: The symptoms/episode began/occurred at an unknown time. Modifying factors: The symptoms are alleviated by remaining still, the symptoms are aggravated by movement, bending knee. Severity of symptoms: At their worst the symptoms were moderate, in the emergency department the symptoms are unchanged. The patient has experienced similar episodes in the past. The patient has been recently seen by a physician:. Pt reports chronic left knee pain, got an MRI that showed "2 small tears", orthopedics told him didn't need surgery, got a shot of toradol that took away his pain. Returns today because of increased left knee pain, no new injury, no fall. Reports also told had "problem with sac behind left knee". Historical: - Allergies: 11:31 PENICILLINS (rash); hb - PMHx: :31 AML; Anemia; BPH; hb - Immunization history:: Adult Immunizations up to date. - Social history:: Smoking status: . - Family history:: not pertinent. - Hospitalizations: : No recent hospitalization is reported. ROS: 12:23 Constitutional: Negative for fever, chills, and weight loss, Cardiovascular: Negative rn for chest pain, palpitations, and edema, Respiratory: Negative for shortness of breath, cough, wheezing, and pleuritic chest pain, MS/Extremity: + left knee pain Skin: Negative for injury, rash, and discoloration, Neuro: Negative for headache, weakness, numbness, tingling, and seizure. Exam: 12:23 Constitutional: This is a well developed, well nourished patient who is awake, alert. internet programmer from waiting room, declines wheelchair or help. Cardiovascular: Regular rate and rhythm. No pulse deficits. MS/ Extremity: Pulses equal, no cyanosis. Neurovascular intact. Ambulatory. + mild knee effusion with tenderness popliteal fossa. No distal leg swelling or discoloration. Vital Signs: 11:29 BP 120 / 83; Pulse 89; Resp 18; Temp 97.7; Pulse Ox 100% on R/A; Weight 81.65 kg; hb Height 5 ft. 10 in. ; Pain 7/10; 11:29 Body Mass Index 25.83 (81.65 kg, 177.8 cm) hb 11:29 Pain Scale: Adult hb MDM: 11:01 Patient medically screened. rn 13:14 Differential diagnosis: tendonitis, knee effusion, tear, strain, sprain, andrew's cyst. rn Data reviewed: vital signs, nurses notes, radiologic studies, doppler, and as a result, I will discharge patient. Counseling: I had a detailed discussion with the patient and/or guardian regarding: the historical points, exam findings, and any diagnostic results supporting the discharge/admit diagnosis, radiology results, the need for outpatient follow up, to return to the emergency department if symptoms worsen or persist or if there are any questions or concerns that arise at home. Special discussion: I discussed with the patient/guardian in detail that at this point there is no indication for admission to the hospital. It is understood, however, that if the symptoms persist or worsen the patient needs to return immediately for re-evaluation. Based on the history and exam findings, there is no indication for further emergent testing or inpatient evaluation. I discussed with the patient/guardian the need to see the orthopedic surgeon for further evaluation of the symptoms. I discussed with the patient/guardian the need to see the primary care provider for further evaluation of the symptoms. ED course: U/S shows complex andrew's cyst, already had MRI of knee and seen by ortho, here for pain control without new injury. Will dc home with pain meds and return precautions.. 11/06 11:55 Order name: Extremity [facility] ; Complete Time: 13:14 rn Administered Medications: 11:59 Drug: Ketorolac IM 30 mg Route: IM; Site: left ventrogluteal; hb Disposition Summary: 11/06/22 13:16 Discharge Ordered Location: Home rn Problem: an ongoing problem rn Symptoms: have improved rn Condition: Stable rn Diagnosis - Pain in left knee rn - Synovial cyst of popliteal space [Andrew], left knee rn Followup: rn - With: Private Physician - When: As needed - Reason: Recheck today's complaints, Re-evaluation by your physician Discharge Instructions: - Discharge Summary Sheet rn - Kamran De La Garza rn Forms: - Medication Reconciliation Form rn - Thank You Letter rn - Antibiotic campus interviews intern - Prescription Opioid Use rn Prescriptions: - Tramadol 50 mg Oral Tablet - take 1 tablet by ORAL route every 8 hours as needed; 12 tablet; Refills: 0, rn Product Selection Permitted - Medrol (Yahir) 4 mg Oral Tablets, Dose Pack - take 1 tablet by ORAL route as directed - follow package instructions; 1 rn packet; Refills: 0, Product Selection Permitted Signatures: Dispatcher [employer] Kirill Elder MD MD rn Ileana Liz RN RN hb
[2022-11-06 13:46] VITALS: BP 120/83; TEMP 97.7; O2SAT 100
== END 2022-11-06 13:40 | disposition home or self-care (01) ==
LOC: ER 10:31
DX: M71.22 Synovial cyst of popliteal space [Baker], left knee (principal); Z88.0 Allergy status to penicillin
CPT/HCPCS: 93971; 96372; 99284

== ENCOUNTER 2023-11-12 19:55 | Emergency (ER) | payer OTHER ==
--- NOTE | 2023-11-12 21:31 | RAD REPORT ---
EXAM DESCRIPTION: CT - Abdomen Pelvis Wo Contrast - 11/12/2023 9:05 pm CLINICAL HISTORY: Abdominal pain dysuria. Bladder distention COMPARISON: 2017 TECHNIQUE: Computed axial tomography of the abdomen and pelvis was obtained. IV and oral contrast we re not requested. All CT scans are performed using dose optimization technique as appropriate and may include automated exposure control or mA/KV adjustment according to patient size. FINDINGS: The evaluation of solid organs, vessels and bowel is limited secondary to the lack of con trast administration. Hepatic cysts. Cholelithiasis. Gallbladder wall does not appear thickened. Spleen, pancreas, adrenals and kidneys grossly normal. Marked prostatic enlargement. The bladder is not distended. Diverticula stem from the colon without evidence diverticulitis. Spondylosis lumbar spine results spinal stenosis Small umbilical hernia Abdominal aorta 3 centimeters. Left common iliac artery 2.7 centimeters. Right common iliac artery 2. 3 centimeters IMPRESSION: Cholelithiasis without evidence cholecystitis 3 centimeter abdominal aortic aneurysm. Followup imaging in 3 years recommended Left common iliac artery 2.7 centimeters. Right common iliac artery 2.3 centimeters. These can also b e assessed on follow-up imaging Marked prostatic hypertrophy
[2023-11-12 21:58] LABS: Specific Gravity > 1.030 (1.005-1.030); Sqamous Epithelial <5 /HPF (None Seen); Urine Bacteria None Seen /HPF (<20); Urine Bilirubin NEGATIVE (Negative); Urine Blood Negative (Negative); Urine Clarity Clear (Clear); Urine Color Light-Yellow (Yellow); Urine Crystals Unidentified Few /HPF (None Seen); Urine Culture Reflex Order NOT NEEDED; Urine Glucose 4+ (Over) (Negative); Urine Ketones NEGATIVE (Negative); Urine Micro Reflex YN NO BILL MICROSCOPIC; Urine Mucus Slight /HPF (None Seen); Urine Nitrite NEGATIVE (Negative); Urine Protein NEGATIVE (Negative); Urine RBC <5 /HPF (None Seen); Urine Urobilinogen Normal (Normal); Urine WBC <5 /HPF (<5)
[2023-11-12 22:11] LABS: ALT/SGPT 16 U/L (16-61); Albumin 3.6 g/dL (3.4-5.0); Alkaline Phosphatase 81 U/L (45-117); Anion Gap 8.8 mEq/L (5.0-15.0); BUN Blood Urea Nitrogen 17 mg/dL (7-18); Bicarbonate 27 mEq/L (21-32); Bilirubin Total 0.9 mg/dL (0.2-1.0); Globulin 3.6 g/dL (2.3-3.5); Glomerular Filtration Rate 86 ml/min (=/>90); Glucose Level 125 mg/dL (74-106); Potassium 3.8 mEq/L (3.5-5.1); Protein, Total 7.2 g/dL (6.4-8.2); Sodium Level 137 mEq/L (136-145)
[2023-11-12 22:15] LABS: AST/SGOT < 10 U/L (15-37)
--- NOTE | 2023-11-12 22:23 | EDPHYS ---
Physician Documentation [facility] Name: Yonatan Carvajal Age: 78 yrs Sex: Male : 1945 Arrival Date: 11/12/2023 Time: 19:55 Bed 10 Private MD: ED Physician Marcelo Howe HPI: 11/11 20:05 This 78 yrs old Male presents to ER via Unassigned with complaints of Urinary sp4 Problem. 11/12 05:58 78-year-old male presents with complaint of decrease in urination and bladder sp4 discomfort. . Historical: - Allergies: 11/11 20:12 PENICILLINS (rash); mb9 - Home Meds: 20:12 finasteride 5 mg oral tablet [Active]; Flomax 0.4 mg Oral capsule [Active]; mb9 - PMHx: 20:12 AML; Anemia; BPH; Leukemia; mb9 - PSHx: 20:12 None; mb9 - Immunization history:: Adult Immunizations up to date. - Infectious Disease History:: Denies. - Social history:: Smoking status: Patient denies any tobacco usage or history of. ROS: 11/12 05:58 Constitutional: Negative for fever, chills, and weight loss, Positive for decreased sp4 urination and bladder discomfort All other systems are negative, Exam: 05:58 Constitutional: This is a well developed, well nourished patient who is awake, alert, sp4 and in no acute distress. Head/Face: Normocephalic, atraumatic. Eyes: Pupils equal round and reactive to light, extra-ocular motions intact. Lids and lashes normal. Conjunctiva and sclera are not injected. Cornea within normal limits. Periorbital areas with no swelling, redness, or edema. ENT: Nares patent. No nasal discharge, no septal abnormalities noted. Tympanic membranes are normal and external auditory canals are clear. Oropharynx with no redness, swelling, or masses, exudates, or evidence of obstruction, uvula midline. Mucous membranes moist. Neck: Trachea midline, no thyromegaly or masses palpated, and no cervical lymphadenopathy. Supple, full range of motion without nuchal rigidity, or vertebral point tenderness. Chest/axilla: Normal chest wall appearance and motion. Nontender with no deformity. No lesions are appreciated. Cardiovascular: Regular rate and rhythm with a normal S1 and S2. No gallops, murmurs, or rubs. Normal PMI, no JVD. No pulse deficits. Respiratory: Lungs have equal breath sounds bilaterally, clear to auscultation and percussion. No rales, rhonchi or wheezes noted. No increased work of breathing, no retractions or nasal flaring. Abdomen/GI: Soft, with normal bowel sounds. No distension or tympany. No guarding or rebound. No evidence of tenderness throughout. Back: No spinal tenderness. No costovertebral tenderness. Male : Normal genitalia with no discharge or lesions. Circumcised male Skin: Warm, dry with normal turgor. Normal color with no rashes, no lesions, and no evidence of cellulitis. MS/ Extremity: Pulses equal, no cyanosis. Neurovascular intact. Full, normal range of motion. Neuro: Awake and alert, GCS 15, oriented to person, place, time, and situation. Cranial nerves II-XII grossly intact. Motor strength 5/5 in all extremities. Sensory grossly intact. Psych: Awake, alert, with orientation to person, place and time. Behavior, mood, and affect are within normal limits Vital Signs: 11/11 20:10 BP 152 / 73; Pulse 72; Resp 18; Temp 98.6; Pulse Ox 95% on R/A; Weight 76.2 kg; Height mb9 5 ft. 10 in. ; 22:48 BP 147 / 82; Pulse 70; Resp 18; Pulse Ox 100% ; as6 20:10 Body Mass Index 24.11 (76.20 kg, 177.8 cm) mb9 Frida Coma Score: 11/12 05:58 Eye Response: spontaneous(4). Motor Response: obeys commands(6). Verbal Response: sp4 oriented(5). Total: 15. Procedures: 05:58 Dunn cath inserted by myself - 16 Fr. Patient tolerated well. sp4 MDM: 11/11 20:20 Patient medically screened. sp4 11/12 05:58 Differential Diagnosis Urinary retention, prostatic enlargement . Data reviewed: vital sp4 signs, nurses notes, old medical records, lab test result(s), radiologic studies, CT scan. Consideration of Admission/Observation Escalation of care including admission/observation considered. ED course: EXAM DESCRIPTION: CT - Abdomen Pelvis Wo Contrast - 11/12/2023 9:05 pm CLINICAL HISTORY: Abdominal pain dysuria. Bladder distention COMPARISON: 2017 TECHNIQUE: Computed axial tomography of the abdomen and pelvis was obtained. IV and oral contrast were not requested. All CT scans are performed using dose optimization technique as appropriate and may include automated exposure control or mA/KV adjustment according to patient size. FINDINGS: The evaluation of solid organs, vessels and bowel is limited secondary to the lack of contrast administration. Hepatic cysts. Cholelithiasis. Gallbladder wall does not appear thickened. Spleen, pancreas, adrenals and kidneys grossly normal. Marked prostatic enlargement. The bladder is not distended. Diverticula stem from the colon without evidence diverticulitis. Spondylosis lumbar spine results spinal stenosis Small umbilical hernia Abdominal aorta 3 centimeters. Left common iliac artery 2.7 centimeters. Right common iliac artery 2.3 centimeters IMPRESSION: Cholelithiasis without evidence cholecystitis 3 centimeter abdominal aortic aneurysm. Followup imaging in 3 years recommended . Left common iliac artery 2.7 centimeters. Right common iliac artery 2.3 centimeters. These can also be assessed on follow-up imaging . 11/11 20:21 Order name: Urinalysis W/Microscopic; Complete Time: 22:13 sp4 11/11 20:35 Order name: CBC with Diff; Complete Time: 06:06 sp4 11/11 20:35 Order name: CMP; Complete Time: 22:22 sp4 11/11 20:35 Order name: CT Abd/Pelvis - Without Contrast; Complete Time: 21:58 sp4 11/11 20:35 Order name: IV Saline Lock; Complete Time: 21:41 sp4 11/11 20:35 Order name: Labs collected and sent; Complete Time: 21:41 sp4 11/11 22:22 Order name: Dunn; Complete Time: 22:31 sp4 11/11 22:22 Order name: Leg Bag; Complete Time: 22:40 sp4 Administered Medications: No medications were administered Disposition Summary: 11/12/23 22:23 Discharge Ordered Problem: new sp4 Symptoms: have improved sp4 Condition: Stable sp4 Diagnosis - Prostatic megaly, urinary retention, abdominal aortic aneurysm, bilateral iliac sp4 artery aneurysm - Prostatomegaly sp4 Followup: sp4 - With: Private Physician - When: 10 - 14 days - Reason: Recheck today's complaints Discharge Instructions: - Discharge Summary Sheet sp4 - Acute Urinary Retention, Male, [id number] sp4 - Indwelling Urinary Catheter Care, Adult, [id number] sp4 Forms: - Patient Portal Instructions sp4 Signatures: Dispatcher [employer] Radha Portillo RN RN mb9 Marcelo Howe MD MD sp4 Corrections: (The following items were deleted from the chart) 11/11 20:35 20:35 CBC+H.LAB.BRZ ordered. EDMS EDMS 20:35 20:35 COMPREHENSIVE METABOLIC PANEL+C.LAB.BRZ ordered. EDMS EDMS 20:35 20:35 Abdomen Pelvis Wo Con+CT.RAD.BRZ ordered. EDMS EDMS 11/12 05:59 05:58 Constitutional: Negative for fever, chills, and weight loss, decreased urination sp4 and bladder discomfort sp4
--- NOTE | 2023-11-12 22:23 | ER ---
Nurse's Notes [facility] Name: Yonatan Carvajal Age: 78 yrs Sex: Male : 1945 Arrival Date: 11/12/2023 Time: 19:55 Bed 10 Private MD: Diagnosis: Prostatic megaly, urinary retention, abdominal aortic aneurysm, bilateral iliac artery aneurysm;Prostatomegaly Presentation: 11/11 20:10 Chief complaint: Patient states: "Since yesterday morning, I've had burning with mb9 urination and urinary frequency. [facility]. I have an enlarged prostate.". Coronavirus screen: Vaccine status: Patient reports receiving the 2nd dose of the covid vaccine. Ebola Screen: No symptoms or risks identified at this time. Initial Sepsis Screen: Does the patient meet any 2 criteria? No. Patient's initial sepsis screen is negative. Does the patient have a suspected source of infection? No. Patient's initial sepsis screen is negative. Risk Assessment: Do you want to hurt yourself or someone else? Patient reports no desire to harm self or others. Onset of symptoms was November 12, 2023. 20:10 Method Of Arrival: Ambulatory mb9 20:10 Acuity: BENTON 3 mb9 Triage Assessment: 20:13 General: Appears in no apparent distress. Behavior is calm, cooperative. Pain: Denies mb9 pain. Neuro: Level of Consciousness is awake, alert, obeys commands, Oriented to person, place, time, situation, Appropriate for age. Cardiovascular: Patient's skin is warm and dry. Respiratory: Airway is patent Respiratory effort is even, unlabored, Respiratory pattern is regular, symmetrical. GI: No signs and/or symptoms were reported involving the gastrointestinal system. : Reports burning with urination, urinary frequency. Derm: Skin is pink, warm \\T\\ dry. Historical: - Allergies: 20:12 PENICILLINS (rash); mb9 - Home Meds: 20:12 finasteride 5 mg oral tablet [Active]; Flomax 0.4 mg Oral capsule [Active]; mb9 - PMHx: 20:12 AML; Anemia; BPH; Leukemia; mb9 - PSHx: 20:12 None; mb9 - Immunization history:: Adult Immunizations up to date. - Infectious Disease History:: Denies. - Social history:: Smoking status: Patient denies any tobacco usage or history of. Screenin:[address] [facility] ED Fall Risk Assessment (Adult) History of falling in the last 3 months, as6 including since admission No falls in past 3 months (0 pts) Confusion or Disorientation No (0 pts) Intoxicated or Sedated No (0 pts) Impaired Gait No (0 pts) Mobility Assist Device Used No (0 pt) Altered Elimination No (0 pt) Score/Fall Risk Level 0 - 2 = Low Risk Oriented to surroundings, Maintained a safe environment, Educated pt \\T\\ family on fall prevention, incl call for assistance when getting out of bed, Assessed \\T\\ reinforced patient's understanding of fall precautions. Abuse screen: Denies threats or abuse. Denies injuries from another. Nutritional screening: No deficits noted. Tuberculosis screening: No symptoms or risk factors identified. Assessment: 21:40 Reassessment: No changes from previously documented assessment. Patient and/or family mb9 updated on plan of care and expected duration. Pain level reassessed. Patient is alert, oriented x 3, equal unlabored respirations, skin warm/dry/pink. Vital Signs: 20:10 BP 152 / 73; Pulse 72; Resp 18; Temp 98.6; Pulse Ox 95% on R/A; Weight 76.2 kg; Height mb9 5 ft. 10 in. ; 22:48 BP 147 / 82; Pulse 70; Resp 18; Pulse Ox 100% ; as6 20:10 Body Mass Index 24.11 (76.20 kg, 177.8 cm) mb9 Frida Coma Score: 11/12 05:58 Eye Response: spontaneous(4). Motor Response: obeys commands(6). Verbal Response: sp4 oriented(5). Total: 15. ED Course: 11/11 19:59 Patient arrived in ED. mr 20:05 Marcelo Howe MD is Attending Physician. sp4 20:12 Triage completed. mb9 20:13 Arm band placed on. mb9 21:06 CT Abd/Pelvis - Without Contrast In Process Unspecified. EDMS 21:40 Initial lab(s) drawn, by me, sent to lab. Urine collected: clean catch specimen, clear. mb9 Inserted saline lock: 22 gauge in left antecubital area, using aseptic technique. 21:41 Urinalysis W/Microscopic Sent. mb9 21:41 CBC with Diff Sent. mb9 21:41 CMP Sent. mb9 22:46 No provider procedures requiring assistance completed. Dunn cath inserted, using as6 sterile technique, 16 Fr., by ED staff, balloon inflated, to gravity drainage, returned clear yellow urine. Patient tolerated well. IV discontinued, intact, bleeding controlled, No redness/swelling at site. Pressure dressing applied. 22:48 Bed in low position. Call light in reach. Side rails up X 1. Provided Education on: as6 catheter care . Administered Medications: No medications were administered Medication: 22:48 VIS not applicable for this client. as6 Outcome: 22:23 Discharge ordered by . sp4 22:46 Discharged to home ambulatory, as6 22:46 Condition: stable 22:46 Discharge instructions given to patient, Instructed on discharge instructions, follow up and referral plans. Demonstrated understanding of instructions, follow-up care, 22:48 Patient left the ED. as6 Signatures: Dispatcher [employer] EDDC Radha Angelo, Reg Reg Alex Gaffney RN RN as6 Radha Carrillo, RN RN mb9 Marcelo Howe MD MD sp4
[2023-11-12 22:24] LABS: Absolute Eosinophils 0.1 K/uL (0-0.5); Absolute Lymphocytes (CBC) 2.5 K/uL (0.7-4.9); Absolute Monocytes 0.7 K/uL (0.1-1.3); Absolute Neutrophil 6.8 K/uL (1.8-8.0); Basophils % 0.4 % (0-1.3); Eosinophils % 1.4 % (0-4.4); Hematocrit 42.3 % (39.6-49.0); Hemoglobin 14.4 g/dL (13.6-17.9); Lymphocytes % 24.6 % (15.3-44.8); MCH 33.9 pg (27.0-35.0); MCHC 34.1 g/dL (32.0-36.0); MCV 99.3 fL (80-100); MPV 7.8 fL (7.6-11.3); Monocytes % 6.8 % (3.3-12.3); Neutrophils % 66.8 % (41.7-73.7); Nucleated Red Blood Cells % 0.1 % (0-0); Platelets 215 thou/uL (152-406); RBC Red Blood Cell Count 4.26 M/uL (4.33-5.43)
[2023-11-12 23:53] VITALS: BP 147/82; TEMP 98.6; O2SAT 100
== END 2023-11-12 22:48 | disposition home or self-care (01) ==
LOC: ER 19:55
DX: R33.9 Retention of urine, unspecified (principal); N40.0 Benign prostatic hyperplasia without lower urinary tract symptoms; I71.40 Abdominal aortic aneurysm, without rupture, unspecified; I72.3 Aneurysm of iliac artery
CPT/HCPCS: 36415; 51702; 74176; 80053; 81001; 85025; 99284

== ENCOUNTER 2023-11-13 00:51 | Emergency (ER) | payer OTHER ==
--- NOTE | 2023-11-13 01:51 | EDPHYS ---
Physician Documentation [facility] Name: Yonatan Carvajal Age: 78 yrs Sex: Male : 1945 Arrival Date: 11/13/2023 Time: 00:51 Bed 12 Private MD: ED Physician Marcelo Howe HPI: 11/12 00:56 This 78 yrs old Male presents to ER via Unassigned with complaints of Problem sp4 With Urinary Catheter. 06:23 Patient presents with leaky urinary catheter. Patient states catheter was placed in the sp4 emergency room earlier today but he developed a leak around the urinary catheter. Patient presents with request to exchange urinary catheter for larger one. . 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 - Infectious Disease History:: Denies. - Social history:: Smoking status: Patient denies any tobacco usage or history of. - Family history:: not pertinent. ROS: 06:24 Constitutional: Negative for fever, chills, and weight loss, positive leak around sp4 urinary catheter 06:24 All other systems are negative, Exam: 06:24 Constitutional: This is a well developed, well nourished patient who is awake, alert, sp4 and in no acute distress. Head/Face: Normocephalic, atraumatic. Eyes: Pupils equal round and reactive to light, extra-ocular motions intact. Lids and lashes normal. Conjunctiva and sclera are not injected. Cornea within normal limits. Periorbital areas with no swelling, redness, or edema. ENT: Nares patent. No nasal discharge, no septal abnormalities noted. Tympanic membranes are normal and external auditory canals are clear. Oropharynx with no redness, swelling, or masses, exudates, or evidence of obstruction, uvula midline. Mucous membranes moist. Neck: Trachea midline, no thyromegaly or masses palpated, and no cervical lymphadenopathy. Supple, full range of motion without nuchal rigidity, or vertebral point tenderness. Chest/axilla: Normal chest wall appearance and motion. Nontender with no deformity. No lesions are appreciated. Cardiovascular: Regular rate and rhythm with a normal S1 and S2. No gallops, murmurs, or rubs. Normal PMI, no JVD. No pulse deficits. Respiratory: Lungs have equal breath sounds bilaterally, clear to auscultation and percussion. No rales, rhonchi or wheezes noted. No increased work of breathing, no retractions or nasal flaring. Abdomen/GI: Soft, with normal bowel sounds. No distension or tympany. No guarding or rebound. No evidence of tenderness throughout. Back: No spinal tenderness. No costovertebral tenderness. Male : Normal genitalia with no discharge or lesions. Circumcised male, indwelling urinary catheter Skin: Warm, dry with normal turgor. Normal color with no rashes, no lesions, and no evidence of cellulitis. MS/ Extremity: Pulses equal, no cyanosis. Neurovascular intact. Full, normal range of motion. Neuro: Awake and alert, GCS 15, oriented to person, place, time, and situation. Cranial nerves II-XII grossly intact. Motor strength 5/5 in all extremities. Sensory grossly intact. Psych: Awake, alert, with orientation to person, place and time. Behavior, mood, and affect are within normal limits Vital Signs: 01:46 BP 106 / 63; Pulse 64; Resp 15; Temp 98.1; Pulse Ox 96% ; Weight 78.47 kg; rc3 Frida Coma Score: 06:24 Eye Response: spontaneous(4). Motor Response: obeys commands(6). Verbal Response: sp4 oriented(5). Total: 15. Procedures: 06:24 Size 16 Turkish urinary catheter exchanged for a size 20 coud urinary catheter. No sp4 complications, leg bag attached. MDM: 01:11 Patient medically screened. sp4 06:24 Differential Diagnosis Dunn catheter complication. Data reviewed: vital signs, nurses sp4 notes, old medical records. ED course: Catheter was exchanged. Patient stable for discharge home. Administered Medications: No medications were administered Disposition Summary: 11/13/23 01:50 Discharge Ordered Notes: Location: Home sp4 Problem: new sp4 Symptoms: have improved sp4 Condition: Stable sp4 Diagnosis - Acute urinary retention, Dunn catheter complication sp4 Followup: sp4 - With: Augustus Acuna MD - When: 7 - 10 days - Reason: Recheck today's complaints Discharge Instructions: - Discharge Summary Sheet sp4 - Indwelling Urinary Catheter Care, Adult, Ulla-fm-Ritz sp4 Forms: - Patient Portal Instructions sp4 Signatures: Anthony Mares RN RN jb4 Marcelo Howe MD MD sp4
--- NOTE | 2023-11-13 01:51 | ER ---
Nurse's Notes [facility] Name: Yonatan Carvajal Age: 78 yrs Sex: Male : 1945 Arrival Date: 11/13/2023 Time: 00:51 Bed 12 Private MD: Diagnosis: Acute urinary retention, Dunn catheter complication Presentation: 11/12 01:46 Chief complaint: Patient states: My catheter is leaking when I try to pee. I think I jb4 need a bigger one or you guys did it wrong. 01:46 Coronavirus screen: At this time, the client does not indicate any symptoms associated jb4 with coronavirus-19. Ebola Screen: Patient denies travel to an Ebola-affected area in the 21 days before illness onset. Initial Sepsis Screen: Does the patient meet any 2 criteria? No. Patient's initial sepsis screen is negative. Does the patient have a suspected source of infection? No. Patient's initial sepsis screen is negative. Risk Assessment: Do you want to hurt yourself or someone else? Patient reports no desire to harm self or others. Onset of symptoms was November 13, 2023. Transition of care: patient was not received from another setting of care. 01:46 Method Of Arrival: Ambulatory jb4 01:46 Acuity: BENTON 4 jb4 Triage Assessment: 01:46 General: Appears in no apparent distress. uncomfortable, Behavior is calm, cooperative, jb4 appropriate for age. 01:46 Pain: Denies pain. EENT: No signs and/or symptoms were reported regarding the EENT jb4 system. Neuro: Level of Consciousness is awake, alert, obeys commands, Oriented to person, place, time, situation. Cardiovascular: Patient's skin is warm and dry. Respiratory: Airway is patent Respiratory effort is even, unlabored, Respiratory pattern is regular, symmetrical. : Pt reports leaking around urinary catheter. Derm: Skin is intact, Skin is pink, warm \T\ dry. Musculoskeletal: Circulation, motion, and sensation intact. Range of motion: intact in all extremities. 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 - Infectious Disease History:: Denies. - Social history:: Smoking status: Patient denies any tobacco usage or history of. - Family history:: not pertinent. Screenin:12 [facility] ED Fall Risk Assessment (Adult) History of falling in the last 3 months, jb4 including since admission No falls in past 3 months (0 pts) Confusion or Disorientation No (0 pts) Intoxicated or Sedated No (0 pts) Impaired Gait No (0 pts) Mobility Assist Device Used No (0 pt) Altered Elimination Yes (1 pt) Score/Fall Risk Level 0 - 2 = Low Risk Oriented to surroundings, Maintained a safe environment. Abuse screen: Denies threats or abuse. Nutritional screening: No deficits noted. Tuberculosis screening: No symptoms or risk factors identified. Vital Signs: 01:46 BP 106 / 63; Pulse 64; Resp 15; Temp 98.1; Pulse Ox 96% ; Weight 78.47 kg; rc3 Frida Coma Score: 06:24 Eye Response: spontaneous(4). Motor Response: obeys commands(6). Verbal Response: sp4 oriented(5). Total: 15. ED Course: 00:51 Patient arrived in ED. jj6 00:56 Marcelo Howe MD is Attending Physician. sp4 01:46 Arm band placed on right wrist. jb4 01:49 Augustus Acuna MD is Referral Physician. sp4 02:00 No provider procedures requiring assistance completed. Patient did not have IV access jb4 during this emergency room visit. 04:10 Triage completed. jb4 Administered Medications: No medications were administered Outcome: 01:50 Discharge ordered by . sp4 02:12 Discharged to home ambulatory, jb4 02:12 Condition: stable 02:12 Discharge instructions given to patient, Instructed on discharge instructions, follow up and referral plans. Demonstrated understanding of instructions, follow-up care, 02:13 Patient left the ED. jb4 Signatures: Anthony Mares RN RN jb4 Eli Russell jj6 Marcelo Howe MD MD sp4 Barbie Ruvalcaba rc3
[2023-11-13 03:09] VITALS: BP 106/63; TEMP 98.1; O2SAT 96
== END 2023-11-13 02:13 | disposition home or self-care (01) ==
LOC: ER 00:51
DX: T83.038A Leakage of other urinary catheter, initial encounter (principal)
CPT/HCPCS: 51702; 99282

== ENCOUNTER 2023-11-15 12:39 | Emergency (ER) | payer OTHER ==
[2023-11-15 13:50] LABS: Albumin 3.4 g/dL (3.4-5.0); Albumin/Globulin Ratio 0.9 (1.1-1.8); Alkaline Phosphatase 82 U/L (45-117); Anion Gap 8.4 mEq/L (5.0-15.0); BUN Blood Urea Nitrogen 14 mg/dL (7-18); Bicarbonate 25 mEq/L (21-32); Bilirubin Total 1.2 mg/dL (0.2-1.0); Globulin 3.6 g/dL (2.3-3.5); Glomerular Filtration Rate 91 ml/min (=/>90); Glucose Level 112 mg/dL (74-106); Potassium 3.4 mEq/L (3.5-5.1); Sodium Level 136 mEq/L (136-145)
--- NOTE | 2023-11-15 13:50 | RAD REPORT ---
EXAM DESCRIPTION: CTStone Protocol - 11/15/2023 1:31 pm CLINICAL HISTORY: Abd pain;Flank pain COMPARISON: Abdomen Pelvis Wo Contrast dated 11/12/2023; Abdomen Pelvis W Contrast dated 07/02/2016 TECHNIQUE: CT of the abdomen and pelvis was performed. All CT scans are performed using dose optimization technique as appropriate and may include automated exposure control or mA/KV adjustment according to patient size. FINDINGS: Lower chest: Coronary artery calcifications . Liver: Several low-density liver lesions that have benign imaging features. Biliary: Cholelithiasis without CT is acute cholecystitis. Stomach: No significant focal abnormality. Duodenum: No significant focal abnormality. Pancreas: No significant abnormality. Spleen: No significant abnormality. Adrenal: No suspicious lesions. Kidney/ureter: No hydronephrosis. No renal calculi. Retroperitoneum: No retroperitoneal adenopathy. Vascular: 3 cm infrarenal abdominal aortic aneurysm. Follow-up imaging in 3 years is recommended. Hudson ateral common iliac artery aneurysms are also unchanged and could be reassessed on follow-up. Bowel: Diverticulosis. No evidence of acute diverticulitis.. Peritoneum: No ascites or free air. Prominent inguinal lymph nodes. Bladder: The bladder is decompressed around a Dunn catheter. Some stranding is present. Prominent ly mph nodes anterior to the bladder. Reproductive: Severe prostatomegaly. The prostate measures 6.9 cm in transverse dimension. Bones: No acute fracture. Multilevel degenerative changes are present in the spine. Other: n/a IMPRESSION: The bladder is decompressed via Dunn catheter. Some bladder wall thickening and strandi ng is noted which could reflect either infection or inflammation. Also noted are some prominent lymph nodes anterior to the bladder wall. Could consider nonemergent cystoscopy. Severe prostatomegaly.
[2023-11-15 13:51] LABS: ALT/SGPT < 14 U/L (16-61); AST/SGOT < 10 U/L (15-37)
[2023-11-15 13:53] LABS: Absolute Eosinophils 0.2 K/uL (0-0.5); Absolute Lymphocytes (CBC) 2.1 K/uL (0.7-4.9); Absolute Monocytes 1.1 K/uL (0.1-1.3); Basophils % 0.4 % (0-1.3); Eosinophils % 1.4 % (0-4.4); Hemoglobin 13.9 g/dL (13.6-17.9); Lymphocytes % 17.3 % (15.3-44.8); MCH 33.2 pg (27.0-35.0); MCHC 33.9 g/dL (32.0-36.0); MPV 7.8 fL (7.6-11.3); Monocytes % 8.7 % (3.3-12.3); Neutrophils % 72.2 % (41.7-73.7); Nucleated Red Blood Cells % 0.1 % (0-0); Platelets 198 thou/uL (152-406); RBC Red Blood Cell Count 4.18 M/uL (4.33-5.43); Red Cell Distribution Width 15.6 % (12.1-15.2)
[2023-11-15] MEDS ORDERED: POTASSIUM 25 MEQ EFFERV TAB ONE (14:19)
[2023-11-15] MEDS ORDERED: CEFTRIAXONE 1000 MG/VIAL ONE (14:19)
[2023-11-15] MEDS ORDERED: CIPROFLOXACIN HCL 500 MG TAB ONE (14:19)
--- NOTE | 2023-11-15 14:35 | ER ---
Nurse's Notes [facility] Name: Yonatan Carvajal Age: 78 yrs Sex: Male : 1945 Arrival Date: 11/15/2023 Time: 12:39 Bed 8 Private MD: Diagnosis: Leakage of urinary (indwelling) catheter;Other mechanical complication of urinary (indwelling) catheter;UTI/ Urinary tract infection, site not specified-BENIGN PROSTRATE HYPERTROPHY, PROSTAMEGALY Presentation: 11/14 12:51 Chief complaint: Patient states: Pain, pus from Dunn site started last night. No ll1 fever. Coronavirus screen: Client denies travel out of the [place] in the last 14 days. At this time, the client does not indicate any symptoms associated with coronavirus-19. Ebola Screen: Patient denies travel to an Ebola-affected area in the 21 days before illness onset. Initial Sepsis Screen: Does the patient meet any 2 criteria? No. Patient's initial sepsis screen is negative. Does the patient have a suspected source of infection? No. Patient's initial sepsis screen is negative. Risk Assessment: Do you want to hurt yourself or someone else? Patient reports no desire to harm self or others. Onset of symptoms was November 14, 2023. 12:51 Method Of Arrival: Ambulatory ll1 12:51 Acuity: BENTON 3 ll1 Triage Assessment: 12:52 General: Appears uncomfortable, Behavior is calm, cooperative, appropriate for age. ll1 Pain: Complains of pain in pelvis Quality of pain is described as aching, throbbing. : Reports cramping, pain pus-like drainage. Historical: - Allergies: 12:46 PENICILLINS (rash); ll1 - PMHx: 12:46 AML; Anemia; BPH; Leukemia; ll1 - Immunization history:: Adult Immunizations up to date. - Infectious Disease History:: Denies. - Social history:: Smoking status: Patient reports the use of cigarette tobacco products, smokes one-half pack cigarettes per day. Screenin:40 [facility] ED Fall Risk Assessment (Adult) History of falling in the last 3 months, iw including since admission No falls in past 3 months (0 pts) Confusion or Disorientation No (0 pts) Intoxicated or Sedated No (0 pts) Impaired Gait No (0 pts) Mobility Assist Device Used No (0 pt) Altered Elimination No (0 pt) Score/Fall Risk Level 0 - 2 = Low Risk. Abuse screen: Denies threats or abuse. Denies injuries from another. Nutritional screening: No deficits noted. Tuberculosis screening: No symptoms or risk factors identified. Assessment: 13:39 Reassessment: Patient appears in no apparent distress at this time. General: Appears in iw no apparent distress. Behavior is calm, cooperative. Pain: Complains of pain in pelvis. Neuro: Level of Consciousness is awake, alert, obeys commands, Oriented to person, place, time, situation, Moves all extremities. Cardiovascular: Patient's skin is warm and dry. Respiratory: Respiratory effort is even, unlabored, Respiratory pattern is regular, symmetrical. GI: Abdomen is non-distended. : Dunn in place to gravity drainage Urine is tea colored Derm: Skin is intact, is healthy with good turgor. Musculoskeletal: Range of motion: intact in all extremities. Vital Signs: 12:51 BP 114 / 76; Pulse 82; Resp 18; Temp 97.2; Pulse Ox 99% on R/A; Weight 76.2 kg; Height ll1 5 ft. 9 in. ; Pain 8/10; 12:51 Body Mass Index 24.81 (76.20 kg, 175.26 cm) ll1 12:51 Pain Scale: Adult ll1 ED Course: 12:45 Patient arrived in ED. mg5 12:46 Arm band placed on Patient placed in an exam room, on a stretcher. ll1 12:52 Triage completed. ll1 12:55 Troy Pandey MD is Attending Physician. leyda 13:19 Jacqueline Cruz, LESLIE is Primary Nurse. iw 13:25 Initial lab(s) drawn, by mn, sent to lab. Inserted saline lock: 22 gauge in right iw antecubital area, using aseptic technique. Blood collected. 13:33 CT Stone Protocol In Process Unspecified. EDMS 13:41 Patient has correct armband on for positive identification. Provided Education on: . iw 14:32 Augustus Acuna MD is Referral Physician. leyda 15:12 No provider procedures requiring assistance completed. IV discontinued, intact, iw bleeding controlled, No redness/swelling at site. Pressure dressing applied. Administered Medications: 14:30 Drug: Ciprofloxacin PO 500 mg PO once Route: PO; iw 15:00 Follow up: Response: No adverse reaction iw 14:30 Drug: Rocephin IV 1 grams IV at per protocol once; Given slow IV push per pharmacy iw instructions Route: IV; Rate: per protocol; Site: right antecubital; 14:40 Follow up: IV Status: Completed infusion iw 14:30 Drug: Potassium PO Effervescent Tablet 25 mEq PO once; dissolve in 4 ounces of water or iw juice Route: PO; 14:55 Not Given (Patient Refused): ns 0.9% 1000 ml IV at 1 bolus Per protocol; 1000 mL bolus iw Medication: 13:40 VIS not applicable for this client. iw Outcome: 14:34 Discharge ordered by . leyda 15:12 Discharged to home ambulatory, iw 15:12 Condition: good 15:12 Discharge instructions given to patient, Instructed on discharge instructions, follow up and referral plans. Demonstrated understanding of instructions, follow-up care, Prescriptions given X 4, 15:14 Patient left the ED. iw Signatures: Dispatcher [employer] EDMS Troy Pandey MD MD cha Williams, Irene, RN RN Ortiz Hair RN RN ll Umm Velasquez mg5
--- NOTE | 2023-11-15 14:35 | EDPHYS ---
Physician Documentation [facility] Name: Yonatan Carvajal Age: 78 yrs Sex: Male : 1945 Arrival Date: 11/15/2023 Time: 12:39 Bed 8 Private MD: NICK Physician Troy Pandey HPI: 11/14 14:28 This 78 yrs old Male presents to ER via Ambulatory with complaints of Problem leyda With Urinary Catheter. 14:28 The patient presents with a Colon catheter problem, is leaking urine. Onset: The leyda symptoms/episode began/occurred 2 day(s) ago. Modifying factors: The symptoms are alleviated by nothing, the symptoms are aggravated by nothing. Associated signs and symptoms: The patient has no apparent associated signs or symptoms. Severity of symptoms: At their worst the symptoms were mild, in the emergency department the symptoms are unchanged. Historical: - Allergies: 12:46 PENICILLINS (rash); ll1 - PMHx: 12:46 AML; Anemia; BPH; Leukemia; ll1 - Immunization history:: Adult Immunizations up to date. - Infectious Disease History:: Denies. - Social history:: Smoking status: Patient reports the use of cigarette tobacco products, smokes one-half pack cigarettes per day. ROS: 14:30 Constitutional: Negative for fever, chills, and weight loss, Eyes: Negative for injury, leyda pain, redness, and discharge, ENT: Negative for injury, pain, and discharge, Neck: Negative for injury, pain, and swelling, Cardiovascular: Negative for chest pain, palpitations, and edema, Respiratory: Negative for shortness of breath, cough, wheezing, and pleuritic chest pain, Abdomen/GI: Negative for abdominal pain, nausea, vomiting, diarrhea, and constipation, Back: Negative for injury and pain, MS/Extremity: Negative for injury and deformity, Skin: Negative for injury, rash, and discoloration, Neuro: Negative for headache, weakness, numbness, tingling, and seizure, Psych: Negative for depression, anxiety, suicide ideation, homicidal ideation, and hallucinations, Allergy/Immunology: Negative for hives, rash, and allergies, Endocrine: Negative for neck swelling, polydipsia, polyuria, polyphagia, and marked weight changes, Hematologic/Lymphatic: Negative for swollen nodes, abnormal bleeding, and unusual bruising, 14:30 : Positive for burning with urination, COLON PAIN, LEAKING AROUND COLON, Exam: 14:30 Constitutional: This is a well developed, well nourished patient who is awake, alert, leyda and in no acute distress. Head/Face: Normocephalic, atraumatic. Eyes: Pupils equal round and reactive to light, extra-ocular motions intact. Lids and lashes normal. Conjunctiva and sclera are non-icteric and not injected. Cornea within normal limits. Periorbital areas with no swelling, redness, or edema. ENT: Nares patent. No nasal discharge, no septal abnormalities noted. Tympanic membranes are normal and external auditory canals are clear. Oropharynx with no redness, swelling, or masses, exudates, or evidence of obstruction, uvula midline. Mucous membranes moist. Neck: Trachea midline, no thyromegaly or masses palpated, and no cervical lymphadenopathy. Supple, full range of motion without nuchal rigidity, or vertebral point tenderness. No Meningismus. Chest/axilla: Normal chest wall appearance and motion. Nontender with no deformity. No lesions are appreciated. Cardiovascular: Regular rate and rhythm with a normal S1 and S2. No gallops, murmurs, or rubs. Normal PMI, no JVD. No pulse deficits. Respiratory: Lungs have equal breath sounds bilaterally, clear to auscultation and percussion. No rales, rhonchi or wheezes noted. No increased work of breathing, no retractions or nasal flaring. Abdomen/GI: Soft, non-tender, with normal bowel sounds. No distension or tympany. No guarding or rebound. No evidence of tenderness throughout. Back: No spinal tenderness. No costovertebral tenderness. Full range of motion. Male : Normal genitalia with no discharge or lesions. Skin: Warm, dry with normal turgor. Normal color with no rashes, no lesions, and no evidence of cellulitis. MS/ Extremity: Pulses equal, no cyanosis. Neurovascular intact. Full, normal range of motion. Neuro: Awake and alert, GCS 15, oriented to person, place, time, and situation. Cranial nerves II-XII grossly intact. Motor strength 5/5 in all extremities. Sensory grossly intact. Cerebellar exam normal. Normal gait. Psych: Awake, alert, with orientation to person, place and time. Behavior, mood, and affect are within normal limits. Vital Signs: 12:51 BP 114 / 76; Pulse 82; Resp 18; Temp 97.2; Pulse Ox 99% on R/A; Weight 76.2 kg; Height ll1 5 ft. 9 in. ; Pain 8/10; 12:51 Body Mass Index 24.81 (76.20 kg, 175.26 cm) ll1 12:51 Pain Scale: Adult ll1 MDM: 12:55 Patient medically screened. [facility] 14:31 Differential diagnosis: nonspecific abdominal pain, UTI, urinary retention, Colon leyda catheter problem, prostatitis, urethritis. Data reviewed: vital signs, nurses notes, lab test result(s), radiologic studies, CT scan. Consideration of Admission/Observation Escalation of care including admission/observation considered. I considered the following discharge prescriptions or medication management in the emergency department Medications were administered in the Emergency Department. See MAR. Care significantly affected by the following chronic conditions: LEUKEMIA, AML, ANEMIA, BPH. 11/14 13:13 Order name: CBC with Diff; Complete Time: 14:22 [facility] 11/14 13:13 Order name: Comprehensive Metabolic Panel; Complete Time: 14:08 [facility] 11/14 13:13 Order name: Urinalysis w/ reflexes [facility] 11/14 13:13 Order name: CT Stone Protocol; Complete Time: 14:08 [facility] 11/14 14:28 Order name: Colon: SEND HOME WITH MYRNA VILLASENOR; Complete Time: 15:12 [facility] 11/14 14:38 Order name: Avelina. Order: REMOVE COLON; Complete Time: 15:03 [facility] Administered Medications: 14:30 Drug: Ciprofloxacin PO 500 mg PO once Route: PO; iw 15:00 Follow up: Response: No adverse reaction iw 14:30 Drug: Rocephin IV 1 grams IV at per protocol once; Given slow IV push per pharmacy iw instructions Route: IV; Rate: per protocol; Site: right antecubital; 14:40 Follow up: IV Status: Completed infusion iw 14:30 Drug: Potassium PO Effervescent Tablet 25 mEq PO once; dissolve in 4 ounces of water or iw juice Route: PO; 14:55 Not Given (Patient Refused): ns 0.9% 1000 ml IV at 1 bolus Per protocol; 1000 mL bolus iw Disposition Summary: 11/15/23 14:34 Discharge Ordered Notes: Location: Home leyda Problem: new leyda Symptoms: have improved leyda Condition: Stable leyda Diagnosis - Leakage of urinary (indwelling) catheter leyda - Other mechanical complication of urinary (indwelling) catheter leyda - UTI/ Urinary tract infection, site not specified - BENIGN PROSTRATE HYPERTROPHY, leyda PROSTAMEGALY Followup: leyda - With: Private Physician - When: 2 - 3 days - Reason: Recheck today's complaints, Continuance of care, Re-evaluation by your physician Followup: leyda - With: Augustus Acuna MD - When: 2 - 3 days - Reason: Recheck today's complaints, Re-evaluation by your physician Discharge Instructions: - Discharge Summary Sheet leyda - Dysuria leyda - Urinary Tract Infection, Adult leyda - Urinary Tract Infection, Adult, [id number] leyda - Benign Prostatic Hyperplasia [facility] Forms: - Medication Reconciliation Form leyda - Antibiotic Education leyda - Prescription Opioid Use leyda - Patient Portal Instructions [facility] - Leadership Thank You Letter [facility] Prescriptions: - Flomax 0.4 mg Oral capsule - take 1 capsule ORAL route every 24 hours; 30 capsule; Refills: 0, Product leyda Selection Permitted - Proscar 5 mg Oral tablet - take 1 tablet ORAL route once; 30 tablet; Refills: 0, Product Selection leyda Permitted - Cipro 250 mg Oral tablet - take 1 tablet ORAL route every 12 hours; 20 tablet; Refills: 0, Product leyda Selection Permitted - Pyridium 200 mg Oral Tablet - take 1 tablet ORAL route every 8 hours for 3 days; 9 tablet; Refills: 0, leyda Product Selection Permitted Signatures: Dispatcher [employer] EDTroy Dodd MD MD cha Williams, Irene, RN RN iw Lewis, Lynsay, RN RN ll1 Corrections: (The following items were deleted from the chart) 13:13 13:13 CBC+H.LAB.BRZ ordered. EDMS EDMS 13:13 13:13 COMPREHENSIVE METABOLIC PANEL+C.LAB.BRZ ordered. EDMS EDMS 13:13 13:13 Urinalysis+U.LAB.BRZ ordered. EDMS EDMS
[2023-11-15 14:58] LABS: Specific Gravity > 1.030 (1.005-1.030); Sqamous Epithelial <5 /HPF (None Seen); Urine Bacteria 20-50 /HPF (<20); Urine Bilirubin NEGATIVE (Negative); Urine Blood 3+ (OVER) (Negative); Urine Clarity Extremely Turbid (Clear); Urine Color Light-Orange (Yellow); Urine Culture Reflex Order REFLEXED; Urine Glucose 4+ (Over) (Negative); Urine Ketones NEGATIVE (Negative); Urine Microscopic Reflex YN ORDER UMIC; Urine Mucus Slight /HPF (None Seen); Urine Nitrite 2+ (Negative); Urine Protein 1+ (Negative); Urine RBC >50 /HPF (None Seen); Urine Urobilinogen Normal (Normal); Urine WBC 20-50 /HPF (<5); Urine WBC Clump Occasional /HPF (None Seen); Urine pH 5.5 (5.0-7.0)
[2023-11-15 15:51] VITALS: BP 114/76; TEMP 97.2; O2SAT 99
== END 2023-11-15 15:14 | disposition home or self-care (01) ==
LOC: ER 12:39
DX: T83.038A Leakage of other urinary catheter, initial encounter (principal); N39.0 Urinary tract infection, site not specified; N40.0 Benign prostatic hyperplasia without lower urinary tract symptoms; C92.00 Acute myeloblastic leukemia, not having achieved remission; F17.210 Nicotine dependence, cigarettes, uncomplicated; Z88.0 Allergy status to penicillin
CPT/HCPCS: 85025; 81001; 36415; 80053; 76377; 74176; 96374; 99284; J0696